=== PATIENT | male | born 2000 | race African-American/Black ===

== ENCOUNTER 2019-07-15 03:24 | Inpatient (IN) ==
[~2019-07-15 03:24] MED LIST: AMIDATE ONE; EPINEPHRINE SYRINGE IV ONE; NARCAN IV ONE; NS 2,000 ML ONE; QUELICIN ONE
[2019-07-15] MEDS ORDERED: CALCIUM CHLORIDE SYRINGE IV ONE (03:26)
[2019-07-15] MEDS ORDERED: D50W SYRINGE IV ONE (03:26)
[2019-07-15] MEDS ORDERED: SODIUM BICARBONATE 8.4% IV ONE ×2 (03:26→04:02)
[2019-07-15] MEDS ORDERED: QUELICIN IV ONE (03:26)
[2019-07-15] MEDS ORDERED: AMIDATE IV ONE (03:26)
[2019-07-15] MEDS ORDERED: EPINEPHRINE 4 MG in NS 250 ML IV SCH (03:30)
[2019-07-15] MEDS ORDERED: LR 1,000 ML IV ONE ×2 (03:31→04:34)
[2019-07-15] MEDS ORDERED: VERSED 100 MG in NS 80 ML IV SCH ×2 (04:00→09:45)
[2019-07-15] MEDS ORDERED: NARCAN IV ONE (04:02)
[2019-07-15] MEDS ORDERED: EPINEPHRINE SYRINGE IV ONE (04:02)
[2019-07-15 04:13] LABS: BASO# 0.03 X1000 (0.0-0.2); BASO% 0.4 % (0.0-0.8); EOS# 0.08 X1000 (0.0-0.7); EOS% 1.1 % (0.0-10.0); HEMATOCRIT 40.6 % (42.0-52.0); HEMOGLOBIN 12.3 g/dL (14.0-18.0); IMM GRAN# 0.07 X1000 (0.0-0.04); LYMPH# 4.78 X1000 (1.2-3.4); LYMPH% 65.9 % (20.5-51.1); MCH 28.7 PG (27-31); MCHC 30.3 g/dL (33-37); MCV 94.9 FL (81-99); MONO# 0.49 X1000 (0.11-0.59); MONO% 6.8 % (1.7-9.3); MPV 10.1 FL (7.4-10.4); NEUT% 24.8 % (42.2-75.2); PLT 300 X1000 (130-400); RBC 4.28 XMIL (4.7-6.1); RDW 12.2 % (11.5-14.5); WBC 7.25 X1000 (4.8-10.8)
[2019-07-15 04:25] LABS: UR AMPHETAMINES QUAL NONE DETECTED (NONE DETECT); UR BARBITUATES QUAL NONE DETECTED (NONE DETECT); UR BENZODIAZEPIN QUAL NONE DETECTED (NONE DETECT); UR CANNABINOIDS QUAL NONE DETECTED (NONE DETECT); UR COCAINE QUAL NONE DETECTED (NONE DETECT); UR METHADONE QUAL NONE DETECTED (NONE DETECT); UR OPIATES QUAL NONE DETECTED (NONE DETECT); UR OXYCODONE QUAL NONE DETECTED (NONE DETECT); UR PCP QUAL NONE DETECTED (NONE DETECT)
[2019-07-15 04:29] LABS: ALB/GLOB RATIO 2.4; ALBUMIN 3.9 g/dL (3.5-5.0); CALCIUM 11.2 mg/dL (8.8-10.2); CREATININE 1.2 mg/dL (0.7-1.2); TOTAL BILIRUBIN 0.4 mg/dL (0.20-1.00); TOTAL PROTEIN 5.5 g/dL (6.3-8.3)
--- NOTE | 2019-07-15 04:53 | PROVIDER DOCUMENTATION ---
HPI-General Adult - General Chief Complaint: Full Arrest Stated Complaint: FULL ARREST Time Seen by Provider: 07/15/19 03:25 Source: EMS Allergies/Adverse Reactions: Patient Allergies Allergy/AdvReac Type Severity Reaction Status Date / Time Unable to Assess Allergy Unverified 07/15/19 03:33 Home Medications: Home Medication List Medication Instructions Recorded Confirmed Last Taken Type Albuterol Sulfate [Proventil Hfa] 6.7 gm IH Q4H PRN #1 hfa.aer.ad 08/16/14 Unknown Rx Inhaler, Assist Devices [Space 1 each MC DIRECTED #1 spacer 08/16/14 Unknown Rx Chamber Plus] Ipratropium 0.03% Nasal Norris 2 spray SORAIDA TID #1 bottle 08/16/14 Unknown Rx [Atrovent 0.03% Nasal Norris] Albuterol [Albuterol Neb] 2.5 mg INH RTQ6H PRN #12 neb 08/14/15 Unknown Rx Azithromycin [Zithromax Z-Cedric] 250 mg PO DIRECTED #1 pkg 08/14/15 Unknown Rx Guaifenesin E.r. [Mucinex] 600 mg PO BID #20 tablet 08/14/15 Unknown Rx Guaifenesin/Codeine Phosphate 10 ml PO 4XDAY PRN #120 liquid 08/14/15 Unknown Rx [Cheratussin AC Syrup] Albuterol [Albuterol Neb] 2.5 mg .SEE ORDER Q4H PRN PRN #1 11/06/18 Unknown Rx neb Levofloxacin [Levaquin] 750 mg PO DAILY 10 Days #10 tab 11/06/18 Unknown Rx Guaifenesin [Guaifenesin ER] 1,200 mg PO BID #20 tab.er.12h 12/20/18 Unknown Rx Levofloxacin [Levaquin] 500 mg PO DAILY 7 Days #7 tab 12/20/18 Unknown Rx Methylprednisolone [Medrol Dosepak] 4 mg PO DIRECTED #1 pkg 12/20/18 Unknown Rx Promethazine/Dextromethorphan 120 ml PO Q6H PRN PRN #120 syrup 12/20/18 Unknown Rx [Promethazine-Dm Syrup] - History of Present Illness -Gen Adult Nature of Presenting Problems: Pt presents with cardiac arrest, pt was found down, was down for approximately 10 minutes prior to EMS arrival, they attempted intubation but failed, started CPR, put pt on [place], BVM, pt was given narcan in the field and epi, CPR was resumed upon arrival, pt had IO in left tibia, 2 IV placed in right AC and wrist, pt was given epi, bicarb, Ca, and D50, got ROSC on third pulse check, pt was give NS and started on an epi drip, attempted to intubate the patient, got good visualization of the cords but each time I attempted to intubate it seemed as though the tube was hitting something and it couldn't be pushed passed the cords, I was able to get a boogie through the cords but unable to thread the tube over the boogie, again it was bending and stopping at the site, LMA placed and pt started on vent, started fluids and versed drip, epi drip was started and eventually stopped. Location of Pain/Injury: reports: none Pain Radiation: reports: no radiation Quality of Pain: reports: none Severity: reports: mild Onset/Duration: reports: unsure Timing: reports: still present Context/Activities at Onset: reports: none Modifying Factors: improves with: nothing Associated Symptoms: reports: denies symptoms Similar Symptoms Previously?: No Recently seen or treated by another doctor?: No Review of Systems - Adult - REVIEW OF SYSTEMS - ADULT ROS:: unobtainable per condition (unresponsive, cardiac arrest) Constitutional: reports: no symptoms reported, see HPI Past History - Adult - PAST MEDICAL HISTORY-ADULT Review of Records: reports: Old Records Reviewed, Nursing Assessment Review, M edications Reviewed, Social history reviewed & non-contributory. Major Childhood Illnesses: reports: denies history Cardiovascular: reports: denies history Respiratory: reports: asthma Gastrointestinal: reports: denies history Obstetrical/Gynecological: reports: denies history Genitourinary: reports: denies history Musculoskeletal: reports: denies history Neurological: reports: denies history Endocrine/Immune: reports: denies history Other Conditions: reports: denies history - PRIOR SURGERIES/PROCEDURES Surgical/Procedure History: reports: none - IMMUNIZATION STATUS Childhood Immunizations: See Nurse Assessment Flu Vaccine: See Nurse Assessment - FAMILY HISTORY Family History: reviewed, not pertinent Physical Exam-General - PHYSICAL EXAM-ADULT Initial Vital Signs Reviewed: Yes - CONSTITUTIONAL General Appearance: severe distress, obtunded. negative: alert - EYES Eyes: PERRL/EOMI - HEAD, EARS, NOSE, MOUTH & THROAT HENMT: normal ENT inspection - NECK Neck: normal inspection - RESPIRATORY Respiratory: lungs clear, no respiratory distress, no accessory muscle use - CARDIOVASCULAR Cardiovascular: tachycardia - GASTROINTESTINAL (ABDOMEN) Abdominal Exam: non tender, soft - LYMPHATIC Lymphatic: no adenopathy - MUSCULOSKELETAL Back Exam: normal inspection Extremity: normal range of motion - SKIN Integumentary: normal color - NEUROLOGIC Neurologic: grossly normal - PSYCHIATRIC Psych/Mental Status: normal mood/affect Progress - PLAN OF CARE/RESULTS Progress/Plan/Lab Results: Vital Signs - 8 hr 07/15/19 03:10 07/15/19 03:15 07/15/19 03:16 Pulse Rate 146 H 92 H 100 H Respiratory Rate 7 L 25 H 18 Blood Pressure 90/54 63/41 79/43 O2 Sat by Pulse Oximetry 100 97 100 07/15/19 03:17 07/15/19 03:18 07/15/19 03:19 Pulse Rate 100 H 104 H 108 H Respiratory Rate 21 20 15 Blood Pressure 90/47 91/40 O2 Sat by Pulse Oximetry 100 100 07/15/19 03:20 07/15/19 03:21 07/15/19 03:23 Pulse Rate 113 H 128 H 136 H Respiratory Rate 17 19 23 Blood Pressure 100/40 127/69 143/84 O2 Sat by Pulse Oximetry 100 100 100 07/15/19 03:25 07/15/19 03:27 07/15/19 03:28 Pulse Rate 132 H 129 H 136 H Respiratory Rate 1 L 17 19 Blood Pressure 159/97 168/108 168/108 O2 Sat by Pulse Oximetry 100 100 100 07/15/19 03:29 07/15/19 03:31 07/15/19 03:34 Pulse Rate 144 H 147 H 145 H Respiratory Rate 16 17 21 Blood Pressure 193/135 190/133 202/148 O2 Sat by Pulse Oximetry 100 100 100 07/15/19 03:36 07/15/19 03:38 07/15/19 03:40 Pulse Rate 149 H 153 H 150 H Respiratory Rate 11 L 13 15 Blood Pressure 208/150 207/150 203/141 O2 Sat by Pulse Oximetry 100 100 100 07/15/19 03:42 07/15/19 03:44 07/15/19 03:45 Pulse Rate 153 H 152 H 149 H Respiratory Rate 16 13 11 L Blood Pressure 205/137 199/131 O2 Sat by Pulse Oximetry 100 100 100 07/15/19 03:46 07/15/19 03:48 07/15/19 03:50 Pulse Rate 148 H 144 H 138 H Respiratory Rate 8 L 14 19 Blood Pressure 195/130 200/112 186/131 O2 Sat by Pulse Oximetry 100 100 100 07/15/19 03:52 07/15/19 03:54 07/15/19 03:56 Pulse Rate 128 H 122 H 113 H Respiratory Rate 17 12 16 Blood Pressure 182/110 179/112 154/118 O2 Sat by Pulse Oximetry 100 100 100 07/15/19 03:58 07/15/19 04:00 07/15/19 04:01 Pulse Rate 107 H 108 H 107 H Respiratory Rate 15 15 16 Blood Pressure 166/108 154/108 O2 Sat by Pulse Oximetry 100 100 100 07/15/19 04:02 07/15/19 04:04 07/15/19 04:06 Pulse Rate 105 H 105 H 103 H Respiratory Rate 16 18 17 Blood Pressure 160/110 156/114 161/110 O2 Sat by Pulse Oximetry 100 100 100 07/15/19 04:08 07/15/19 04:10 07/15/19 04:12 Pulse Rate 102 H 104 H 102 H Respiratory Rate 17 20 16 Blood Pressure 146/117 175/93 156/114 O2 Sat by Pulse Oximetry 100 100 100 07/15/19 04:14 07/15/19 04:15 07/15/19 04:16 Pulse Rate 101 H 102 H 100 H Respiratory Rate 13 15 17 Blood Pressure 159/119 160/111 O2 Sat by Pulse Oximetry 100 100 100 07/15/19 04:18 07/15/19 04:20 07/15/19 04:22 Pulse Rate 97 H 95 H 99 H Respiratory Rate 15 16 17 Blood Pressure 152/108 160/111 152/111 O2 Sat by Pulse Oximetry 100 100 100 07/15/19 04:24 07/15/19 04:26 07/15/19 04:28 Pulse Rate 94 H 99 H 97 H Respiratory Rate 16 18 20 Blood Pressure 176/90 146/116 162/100 O2 Sat by Pulse Oximetry 100 100 100 07/15/19 04:30 07/15/19 04:31 07/15/19 04:32 Pulse Rate 110 H 104 H 97 H Respiratory Rate 17 18 19 Blood Pressure 168/113 160/124 O2 Sat by Pulse Oximetry 100 100 100 07/15/19 04:34 07/15/19 04:36 Pulse Rate 100 H 98 H Respiratory Rate 21 22 Blood Pressure 155/116 164/120 O2 Sat by Pulse Oximetry 100 100 Laboratory Results - last 24 hr 07/15/19 07/15/19 07/15/19 03:01 03:12 03:12 WBC 7.25 RBC 4.28 L Hgb 12.3 L Hct 40.6 L MCV 94.9 MCH 28.7 MCHC 30.3 L RDW Std Deviation 12.2 Plt Count 300 MPV 10.1 Immature Gran % (Auto) 1.0 H Neut % (Auto) 24.8 L Lymph % (Auto) 65.9 H [place] % (Auto) 6.8 Eos % (Auto) 1.1 Baso % (Auto) 0.4 Immature Gran # (Auto) 0.07 H Neut # (Auto) 1.80 Lymph # (Auto) 4.78 H [place] # (Auto) 0.49 Eos # (Auto) 0.08 Baso # (Auto) 0.03 Sodium Potassium Chloride Carbon Dioxide Anion Gap BUN Creatinine Estimated GFR/1.73 m2 BUN/Creatinine Ratio Glucose POC Glucose 204 H Calculated Osmolality Calcium Total Bilirubin AST ALT Alkaline Phosphatase Troponin T Total Protein Albumin Globulin Albumin/Globulin Ratio Urine Opiates Screen Ur Oxycodone Screen Ur Methadone, Qual Ur Barbiturates Screen Ur Phencyclidine Scrn Ur Amphetamines Screen U Benzodiazepines Scrn Urine Cocaine Screen U Cannabinoids Screen Plasma/Serum Ethyl Alc 07/15/19 07/15/19 07/15/19 03:12 03:12 03:12 WBC RBC Hgb Hct MCV MCH MCHC RDW Std Deviation Plt Count MPV Immature Gran % (Auto) Neut % (Auto) Lymph % (Auto) [place] % (Auto) Eos % (Auto) Baso % (Auto) Immature Gran # (Auto) Neut # (Auto) Lymph # (Auto) [place] # (Auto) Eos # (Auto) Baso # (Auto) Sodium 145 Potassium 5.0 Chloride 98 Carbon Dioxide 26 Anion Gap 21 BUN 18 Creatinine 1.2 Estimated GFR/1.73 m2 54 BUN/Creatinine Ratio 15 Glucose 309 H POC Glucose Calculated Osmolality 302 Calcium 11.2 H Total Bilirubin 0.40 AST 46 H ALT 39 Alkaline Phosphatase 68 Troponin T < 0.010 Total Protein 5.5 L Albumin 3.9 Globulin 1.6 Albumin/Globulin Ratio 2.4 Urine Opiates Screen NONE DETECTED Ur Oxycodone Screen NONE DETECTED Ur Methadone, Qual NONE DETECTED Ur Barbiturates Screen NONE DETECTED Ur Phencyclidine Scrn NONE DETECTED Ur Amphetamines Screen NONE DETECTED U Benzodiazepines Scrn NONE DETECTED Urine Cocaine Screen NONE DETECTED U Cannabinoids Screen NONE DETECTED Plasma/Serum Ethyl Alc Orders Category Date Time Status CHEST-PORTABLE [RAD] Stat Exams 07/15/19 03:27 Taken ALCOHOL BLOOD Stat Lab 07/15/19 03:12 Completed CBC WITH ELECTRONIC DIFF [HEME] Stat Lab 07/15/19 03:12 Completed COMPREHENSIVE METABOLIC PANEL [CHEM] Stat Lab 07/15/19 03:12 Completed TROPONIN T Stat Lab 07/15/19 03:12 Completed URINE DRUG SCREEN Stat Lab 07/15/19 03:12 Completed 0.9% Sodium Chloride Inj [Ns] 2,000 ml Med 07/15/19 03:24 Discontinued .ROUTE As directed 0.9% Sodium Chloride Inj [Ns] 250 ml Med 07/15/19 03:30 Active Epinephrine 4 mg IV As Directed mls/hr 0.9% Sodium Chloride Inj [Ns] 80 ml Med 07/15/19 04:00 Active Midazolam [Versed] 100 mg IV As Directed mls/hr Calcium Chloride Syringe Med 07/15/19 03:26 Discontinued 1 gm IV NOW ONE Dextrose 50% Syringe [D50w Syringe] Med 07/15/19 03:26 Discontinued 50 ml IV NOW ONE Epinephrine Syringe Med 07/15/19 04:02 Discontinued 1 mg IV .STK-MED ONE Epinephrine Syringe Med 07/15/19 03:01 Discontinued 1 mg IV NOW ONE Etomidate [Amidate] Med 07/15/19 03:26 Discontinued 10 mg IV NOW ONE Etomidate [Amidate] Med 07/15/19 03:10 Discontinued 40 mg .ROUTE .STK-MED ONE Lactated Ringers Inj [Lr] 1,000 ml Med 07/15/19 03:31 Discontinued IV 999 mls/hr Lactated Ringers Inj [Lr] 1,000 ml Med 07/15/19 04:34 Active IV 999 mls/hr Naloxone [Narcan] Med 07/15/19 04:02 Discontinued 2 mg IV .STK-MED ONE Naloxone [Narcan] Med 07/15/19 02:58 Discontinued 2 mg IV NOW ONE Sodium Bicarbonate 8.4% Med 07/15/19 04:02 Discontinued 50 meq IV .STK-MED ONE Sodium Bicarbonate 8.4% Med 07/15/19 03:26 Discontinued 50 meq IV NOW ONE Succinylcholine [Quelicin] Med 07/15/19 03:26 Discontinued 150 mg IV NOW ONE Succinylcholine [Quelicin] Med 07/15/19 03:10 Discontinued 200 mg .ROUTE .STK-MED ONE EKG [EKG] Stat Ther 07/15/19 03:27 Ordered Spoke with anesthesia about the ETT not passing, they suggested it could be a f ood bolus that was aspirated or possibly a polyp, they recommeded we leave him on the LMA, to attempt to pass a tube now could push the objection further down, pt is ventilating well, anesthesia is available in the am to do a bronch and eval if there is an obstruction past the cords, considered hypothermia but was hesitant due to no diffinitive airway, spoke with Dr. Ewing about it and will defer to the inpatient ICU team to decide if they want hypothermia, pt admitted to the ICU. Result Diagrams: 07/15/19 03:12 07/15/19 03:12 Procedures - INTUBATION Mallampati Class: 1 Intubation Method: orotracheal Equipment: LMA Tube Size (cm): size 3 LMA Pretreated with 100% Oxygen?: Yes Breath Sounds after Intubation: equal ETT Primary Tube Confirmation: Capnometry CO2 Change, Chest Rise and Fall Intubation Complications: oral-unsuccessful attempt (3 attempt with both glidescope and DL, was able to get boogie through the cords but unable to pass ETT on any attempt, each time it bent and wouldn't pass) Departure - Departure Date of Disposition Decision: 07/15/19 Time of Disposition Decision: 05:01 DIAGNOSIS: Cardiac arrest Disposition: ADMITTED INPATIENT 09 Certified Medical Emergency: Emergent Condition: Critical Referrals and Follow-Ups: Lucsa De Jesus MD [Primary Care Provider] - - Critical Care Note This patient required my direct & personal management of CC.: Yes Total Time (mins): 45 Critical Care Statement: This patient required my direct personal management to treat or rule out processes, the absence of which, could potentiallly result in sudden, clinically significant life or limb threatening deterioration. Attestation - Physician/ ANNA Attestation Patient care was provided by Advanced Practice Provider:: No The physician spent face to face time with patient:: Yes Advanced Practice Provider documentation review:: Supervising physician onsite and consulted in the evaluation and care of this patient. The physician did have a face to face encounter with the patient.
[2019-07-15] MEDS ORDERED: FENTANYL IV ONE ×2 (04:58→07:15)
[2019-07-15] MEDS ORDERED: DUONEB (A & A) INH ONE (05:33)
[2019-07-15] MEDS ORDERED: SOLU-MEDROL IV ONE (05:33)
[2019-07-15 05:44] LABS: ALLEN TEST YES; BLOOD TYPE ARTERIAL; METHB 0.8 % (0.0-1.5); O2(CT) 21.5 mL/dL (15.0-23.0); PO2(98.6) 419 mmHg (60-100); SAMPLE BLOOD; SAO2 100.3 % (95.0-100.0); SRATE 15 BPM; THB 14.8 g/dL (11.5-17.4); pH(98.6) 7.21 (7.35-7.45)
[2019-07-15 05:46] LABS: MODALITY VENTILATOR; PCO2(98.6) 60 mmHg (35-45)
[2019-07-15] MEDS ORDERED: LOVENOX SUBQ SCH ×2 (07:04→07:15)
[2019-07-15] MEDS ORDERED: TYLENOL PO PRN (07:04)
[2019-07-15] MEDS ORDERED: ZOFRAN IV PRN (07:04)
[2019-07-15] MEDS ORDERED: TYLENOL PR PRN (07:11)
[2019-07-15] MEDS ORDERED: NS 500 ML IV PRN (07:11)
--- NOTE | 2019-07-15 07:14 | Diag Imaging Result Doc PS360 ---
EXAM: CHEST-PORTABLE 07/15/2019 HISTORY: POST INTUBATION TECHNIQUE: AP portable at 0331 COMMENT: The stomach is markedly distended with gas. Compared to 12/20/2018 the alveolar opacity in the left lower lobe has resolved. No evidence of focal pulmonary opacity is otherwise present. IMPRESSION: Gastric distention. Electronically signed by Rene Dominguez 07/15/2019 7:11 AM
[2019-07-15] MEDS ORDERED: POTASSIUM CHLORIDE 40 MEQ in NS 250 ML IV PRN (07:15)
[2019-07-15] MEDS ORDERED: MAGNESIUM SULFATE 2 GM in STERILE WATER INJ. 50 ML IV PRN (07:15)
[2019-07-15] MEDS ORDERED: POTASSIUM CHLORIDE 60 MEQ in NS 500 ML IV PRN (07:15)
[2019-07-15] MEDS ORDERED: SODIUM PHOSPHATE 10 MMOL in NS 250 ML IV PRN (07:15)
--- NOTE | 2019-07-15 07:25 | HISTORY AND PHYSICAL ---
PRIMARY CARE PHYSICIAN: None. REASON FOR ADMISSION: Cardiorespiratory arrest. HISTORY OF PRESENT ILLNESS: Mr. Cordero is a 19-year-old male with past medical history of asthma. The mother informs me that he has been seeing a specialist. He was seeing a specialist about 4 to 5 years ago in [place] for his lung problems and as a child in [place] for this same unusual lung problem other than asthma. The patient was brought in today by EMS when he fell at his uncle's house and became unresponsive. His uncle witnessed this and put his hand on his chest. He tried to attempt to do CPR, but he didn't know what he was doing and called for help. Within 20 minutes, the EMS had arrived. He said prior to EMS walking through the door he noted that his nephew's heart beat had disappeared. When the EMS came in, they started compressions and got ROSC. On their way to transporting him to the hospital, they a lost pulse again and continued CPR. On arrival to our facility, he underwent CPR and was given 3 doses of IV epinephrine. Since then, ROSC has returned and has been sustained. He is currently not on any pressors at this point in time. 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 He started working there a few days ago. His mother did not notice any acute shortness of breath or any complaints of chest pain. The only complaint the patient gave them was that he felt tired and was very thirsty. No antecedent history of polyuria. No history of blood loss, fever or chills. REVIEW OF SYSTEMS: Limited due to the fact the patient is currently intubated and sedated. ALLERGIES: No known allergies. MEDICATIONS: Albuterol nebulizer machine. PAST SURGICAL HISTORY: Nil. FAMILY HISTORY: Negative for heart disease and diabetes. SOCIAL HISTORY: The patient does not smoke, drink, or use illicit drugs. There was according to the ER records someone did state that the patient endorsed smoking spice before incident, but the uncle vehemently denies this. LABORATORY: White count 7000, hemoglobin and hematocrit 12 and 40, platelet count of 300,000. He has 67% lymphocytes. BUN is 18 and creatinine 1.2, up from 0.8. Glucose is 309. Calcium is 11.2. Troponin is negative. Urine drug screen is negative. Alcohol level is negative. Urinalysis is pending. Chest film reviewed by me shows the patient showed increased vascular markings with possible right lower lobe infiltrative process, and a very distended stomach noted. Blood gas was 7.21, pCO2 was 60, and PO2 was 400. PHYSICAL EXAMINATION: GENERAL: On examination, a young man with an LMA in place. He is profoundly sedated. He is breathing normally, but occasionally intermittently he will take a sudden sharp breath. VITAL SIGNS: His blood pressure is 164/120, heart rate is 22, temperature is afebrile to touch, heart rate is 98 and 100% on FiO2. HEENT: Head is normocephalic and atraumatic. Eyes: Pupils are miotic and barely reactive to light. No nystagmus noted. He is anicteric, not pale. No visual central cyanosis noted. NECK: No JVD. No thyromegaly visualized. CHEST: Decreased entry in the bases, but has bibasilar crepitations. No wheezes heard. CARDIOVASCULAR: First and 2nd sounds heard. No gallops, murmurs, or rubs. Rhythm is regular. ABDOMEN: Slightly distended. Soft. No mass is appreciated. No organomegaly appreciated. Bowel sounds are hypoactive. RECTAL: Deferred. EXTREMITIES: Patient has good distal pulses. Volume is regular and symmetrical. No edema, clubbing, or peripheral cyanosis. NEUROLOGIC: Difficult to assess. Once sternal rub was applied, he grimaced but no overt movement of extremities. I was told they had to give him a dose of vecuronium after initial RSI drugs. SKIN: Intact. No breakdown, lesions, or erythema. MUSCULOSKELETAL: Exam is grossly normal. ASSESSMENT: 1. Cardiorespiratory arrest? Sudden respiratory failure from airway disease i.e. asthma. 2. Acute kidney injury. 3. Hyperglycemia which could be stress induced. 4. Hypercalcemia which could be secondary to IV calcium administration. 5. Lymphocytosis? significance. 6. The patient will be started on hypothermia protocol. In addition to that, we will start patient on moderate doses of steroids and short and long acting bronchodilators since he has a pre-existing history of asthma which may or may not have contributed to his presentation. The patient does have the appropriate reactive hyperglycemia from stressful event. However, I will still need to rule out possible DKA here. Possible uncontrolled diabetes. 7. Aggressively resuscitate patient fluid martins as he unlikely to be in early DKA, and I noted that his urine bag had barely put out enough urine . He has only received about a L of fluid at this point in time, and this needs to be addressed. I do not see any infectious source at this point in time. No blood cultures have been drawn. Repeat blood gas, ABG, and all labs in the next 4 hours and make appropriate adjustments. TIME SPENT: Total critical care time was greater than 35 minutes. cc: Indira Ewing MD MTDD
[2019-07-15 07:26] LABS: URINE SOURCE CATH
[2019-07-15 07:40] LABS: COLOR YELLOW; GLUCOSE URINE NEGATIVE (NEGATIVE); INR 1.16; TURBIDITY URINE HAZY (CLEAR)
[2019-07-15 07:41] LABS: BILIRUBIN URINE NEGATIVE (NEGATIVE); BLOOD URINE LARGE (NEGATIVE); KETONE URINE NEGATIVE (NEGATIVE); LEUKOCYTES URINE NEGATIVE (NEGATIVE); NITRITE URINE NEGATIVE (NEGATIVE); PH URINE 6.5; PROTEIN URINE 70 mg/dL (NEGATIVE); SP GRAVITY URINE 1.032; UROBILINOGEN URINE NORMAL (NORMAL)
[2019-07-15 07:42] LABS: UR EPITHELIAL CELLS <10 /HPF (<10); URINE BACTERIA NEGATIVE /HPF; URINE RBC TNTC /HPF (<10)
[2019-07-15] MEDS: SODIUM CHLORIDE 0.9% INJ SCH ×2 (07:45→18:41)
[2019-07-15] MEDS: PEPCID IV SCH ×2 (07:45→18:41)
[2019-07-15 07:46] LABS: MAGNESIUM 2.4 mg/dL (1.5-2.7); PHOSPHORUS 9.3 mg/dL (2.7-4.5)
[2019-07-15 07:48] LABS: HEMOGLOBIN A1C 5.5 % (4.8-6.0)
[2019-07-15] MEDS: NS 1,000 ML IV SCH ×3 (07:59→20:18)
[2019-07-15] MEDS: ATIVAN IV SCH ×5 (07:59→23:34)
[2019-07-15] MEDS ORDERED: NITROGLYCERIN 50 MG/D5W 50 MG/250 ML IV.SOLN IV SCH ×2 (08:00→19:45)
[2019-07-15] MEDS: FENTANYL 1,000 MICROGM in NS 80 ML IV SCH (08:12)
[2019-07-15] MEDS ORDERED: NS 250 ML ONE (08:28)
[2019-07-15] MEDS ORDERED: KEFZOL 1 GM/D5W 1 GM/50 ML IVPB IV ONE (09:41)
[2019-07-15] MEDS ORDERED: SENSORCAINE 0.25%/EPI 1:200,000 ONE (09:58)
[2019-07-15] MEDS ORDERED: KEFZOL 1 GM/D5W 1 GM/50 ML IVPB ONE (10:25)
[2019-07-15 10:31] LABS: BASO# 0.01 X1000 (0.0-0.2); BASO% 0.1 % (0.0-0.8); HEMATOCRIT 47.6 % (42.0-52.0); HEMOGLOBIN 15.3 g/dL (14.0-18.0); IMM GRAN# 0.04 X1000 (0.0-0.04); IMM GRAN% 0.2 % (0.0-0.5); LYMPH# 1.12 X1000 (1.2-3.4); MCH 28.8 PG (27-31); MCHC 32.1 g/dL (33-37); MCV 89.6 FL (81-99); MONO# 0.95 X1000 (0.11-0.59); MONO% 5.9 % (1.7-9.3); MPV 9.6 FL (7.4-10.4); NEUT# 13.96 X1000 (1.4-6.5); NEUT% 86.8 % (42.2-75.2); PLT 329 X1000 (130-400); RBC 5.31 XMIL (4.7-6.1); RDW 12.4 % (11.5-14.5); WBC 16.08 X1000 (4.8-10.8)
[2019-07-15 10:34] LABS: AGAP 13; ALB/GLOB RATIO 2.3; ALBUMIN 4.8 g/dL (3.5-5.0); ALKALINE PHOSPHATASE 77 U/L (32-122); BUN 20 mg/dL (8-22); CHLORIDE 104 mmol/L (98-107); COSMO 300; CREATININE 0.9 mg/dL (0.7-1.2); ESTIMATED GFR > 60; GLUCOSE 185 mg/dL (70-104); GOT 69 U/L (10-34); GPT 53 U/L (10-44); POTASSIUM 3.6 mmol/L (3.5-5.1); SODIUM 147 mmol/L (136-145); TCO2 30 mmol/L (25-35); TOTAL BILIRUBIN 0.38 mg/dL (0.20-1.00); TOTAL PROTEIN 6.9 g/dL (6.3-8.3)
--- NOTE | 2019-07-15 11:04 | CARDIOLOGY CONSULTATION ---
DATE: 07/15/2019 REASON FOR ADMISSION: Cardiorespiratory arrest. HISTORY OF PRESENT ILLNESS: Mr. Cordero is a 19-year-old black male with a history of asthma and some sort of lung issue stemming from premature . He is seeing some sort of lung specialist previously in [place]. 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 His mother said he would come home with black dust on his face. Yesterday he did the same. That evening he went over to his uncle's house. His uncle reportedly said he was acting a little bit funny, but did not think anything of it. Next thing you know, they found him unresponsive in the bathroom. They attempted CPR. EMS came. He was brought to the ER and he was in asystole. Again, ACLS was ensued; eventually got a return of spontaneous circulation. They have been unable to intubate the patient due to his airway, and are pending taking him to the operating room for tracheostomy. PAST MEDICAL HISTORY: Asthma with some sort of lung issue which he had seen a specialist before in the past. FAMILY HISTORY: Negative for early heart disease. SOCIAL HISTORY: He does not smoke, drink or use illicit drugs. REVIEW OF SYSTEMS: A 10 system review of systems is negative, except for those things mentioned in HPI. PHYSICAL EXAMINATION: Vital Signs: He is afebrile. His heart rate has been in the low 100s for much of the evening. More recently, he was in the 80s. Blood pressure 157/99. General: No acute distress. He is not responsive to physical or verbal stimuli. HEENT: Oropharynx is moist. Normal dentition. Eye examination shows pink conjunctivae, white sclerae. Neck: Examination shows no obvious thyromegaly or thyroid tenderness. Cardiovascular: He sounds to be in a regular rate and rhythm. He has no obvious murmurs. He has no S3. He has no lower extremity edema. Chest: Clear bilaterally. He has no increased work of breathing. Abdomen: Soft, nontender. Neurological: He has Doll's eye reflex. Again, he is not responsive. PERTINENT DATA: His EKG on presentation shows sinus rhythm 100 beats per minute. No obvious ischemic changes. He had a chest x-ray performed yesterday demonstrating gastric distention. No focal pulmonary opacity was identified. His lab data shows a white count of 7.2, hematocrit 40, platelet count is 300. His ABG was 7.2 pH, pCO2 of 60, PO2 419, lactate 7.7. Sodium 145, potassium is 5, BUN 18, creatinine is 1.2. Cardiac enzymes negative. ASSESSMENT: Mr. Cordero is a 19-year-old male who presented with respiratory/cardiac arrest. PLAN: At this point from a Cardiology standpoint, we will obtain an echocardiogram. Further recommendations to follow. He is going to the operating room for a definitive airway as he has been unable to be intubated, although he seems to be oxygenating just fine. cc: Darin Dietz MD
[2019-07-15 11:17] LABS: BANDS 3 % (0-1); LYMPHS 6 % (21-51); MONO 12 % (1-9); SEGS 79 % (42-75)
--- NOTE | 2019-07-15 11:19 | EKG Report ---
Test Performed on : 07/15/2019 11:08:21 AM Test Reason : cardiac arrest/prolong QT Blood Pressure : / mmHG Vent. Rate : 087 BPM Atrial Rate : 087 BPM P-R Int : 140 ms QRS Dur : 102 ms QT Int : 382 ms P-R-T Axes : 071 082 067 degrees QTc Int : 459 ms Normal sinus rhythm. Normal ECG No previous ECGs available Confirmed by Pricilla GRECO, Yusuf Walker ([id number]) on 07/16/2019 6:05:00 AM
[2019-07-15] MEDS: LOVENOX SUBQ SCH ×2 (11:45→23:34)
[2019-07-15] MEDS: NIMBEX 80 MG in NS 160 ML IV SCH ×3 (11:46→22:17)
[2019-07-15] MEDS: LACRI-LUBE OPH OINT BOTH EYES SCH ×2 (11:46→17:39)
[2019-07-15 12:17] LABS: ALLEN TEST YES; BE -1.7 mmoll (-3.0-3.0); BLOOD TYPE ARTERIAL; HCO3-(ACT) 23.6 mmoll (20.0-26.0); O2(CT) 21.5 mL/dL (15.0-23.0); PO2(98.6) 203 mmHg (60-100); SAMPLE BLOOD; SAO2 100.4 % (95.0-100.0); SRATE 16 BPM; THB 15.3 g/dL (11.5-17.4); TVOL 400 mL
[2019-07-15 12:19] LABS: MODALITY VENTILATOR; PCO2(98.6) 73 mmHg (35-45)
--- NOTE | 2019-07-15 12:27 | PROGRESS NOTE ---
DATE: 07/15/2019 SUBJECTIVE: This morning I saw Mr. Cordero in the ICU. I was called by the nurses to come in emergently. Anesthesia had tried multiple times to secure an airway. However, they were unsuccessful. I also understand that the patient was tried on multiple occasions by the emergency physician, and they were unresponsive. 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 He is being treated for asthma, and he is on intermittent inhalers. He seems to have been fairly okay, went to work yesterday, and came home. According to the mother, he was in his normal state of health. He went to his uncle's house and they were there playing some games. According to the uncle, he looked tired and he looks sweaty, and he thought that Mr. Cordero did not look great. Anyway, he did not make anything out of that. They left Mr. Cordero on the couch and there were 2 other family members around. He denies them using any form of drugs at his house. In any case around 12:00, Mr. Cordero went to use the restroom. According to the uncle, Mr. Cordero looked very unstable. He looked sweaty, and when he went to use the restroom he seemed to have lost his balance and then he fell. When he went to check on him, he had lost pulse. Immediately, he started CPR, but he did know what he was doing so he called for help, and the emergency unit came to assist. The patient was brought to the emergency room. Per the H P, CPR was done upon arrival. Three doses of epinephrine was given and ROSC was obtained. Since then, Mr. Cordero has been in the ICU. He is currently with LMA because they could not get a secured airway. OBJECTIVE: His current blood pressure is 157/97, pulse of 109, respirations at 34, and temperature is 96.3 degrees.General: Mr. Cordero is a 19-year-old gentleman. He is in bed. He is tachypneic. Mucosa is pink and moist. Anicteric. Acyanotic. Neck: Supple. There is no JVD. No carotid bruit. Chest: Air entry is bilaterally reduced, but there are not any crackles. There are some transmitted sounds from the ventilator. Cardiovascular: Tachycardic but no murmurs. No rubs. Abdomen: Soft. Bowel sounds present. Extremities: No pedal edema. The patient has a Crooks catheter in place. NURSE EXTERN: Patient is unresponsive. Pupils are very pinpoint and minimally reactive. There were so many things going on so I could not do a more comprehensive neurological exam at this time. LABORATORY DATA: WBC 7.25, hemoglobin is 12.3, and platelet count of 300,000. Chemistry is also reviewed. The patient has a lactate level of 7.7. Glucose is elevated. Urine shows blood. I think that is because of the Crooks catheter trauma. An EKG which was done on admission seems to suggest sinus tachycardia with occasional PVC. There is a prolonged QT and some T-wave inversion in the inferolateral leads. The patient also seems to have an S1, Q3, and T3 pattern which in the right contest could mean pulmonary emboli. A chest x-ray did show gastric distention, but for the most part unremarkable. ASSESSMENT: 1. Status post cardiac arrest. ROSC was obtained it seems like intermittently, but became stabilized after 2 hours. The patient has a difficulty airway so he is currently on LMA. We are not 100% sure what could have precipitated the cardiac/respiratory arrest. So far, troponin's have been trended. The initial one was negative. We do not have a pro B, but we will do one. We will also repeat the EKG and get Cardiology to evaluate him. 2. Acute respiratory failure after cardiac arrest. The patient has LMA. I understand multiple attempts has been made by the ER physician. This morning multiple attempts were also made by Anesthesia, and they were unremarkable. 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 We have consulted Surgery to get a tracheostomy. I have discussed this with the family who was the mother, the grandma, and the uncle; all of them are in agreement. I have also spoken with the surgeon operations supervisor chemical cleaning today. 3. Hyperglycemia. I think this is a stress response. 4. Unresponsiveness after cardiac arrest. The patient has been on sedatives as well so we will not be able to get a more comprehensive idea on his mental status. We will wait. When all is settled, we will do a more comprehensive neurological evaluation. We will also get Neurology to see him. There is an order for a CT scan of the brain whenever possible. 5. History of asthma noted. PLAN: So in general, I think Mr. Cordero continues to be remarkably sick. His EKG did show some mild T-wave abnormalities in S1 Q3 and T3 pattern, and also prolonged QT. There is also the concern that he could have some synthetic drugs which we are not 100% sure about that. For now, we are going to get a secure airway with tracheostomy, and then after that, we can do some scans and then go forward. The patient is pending to be evaluated by Pulmonary Medicine, Cardiology and Neurology. I have explained my findings and the plan with the family members who were at the bedside at the time of the encounter. TIME SPENT: Critical time spent is 1 hour. cc: Raghavendra Fairchild MD MTDD
--- NOTE | 2019-07-15 13:09 | Diag Imaging Result Doc PS360 ---
EXAM: CHEST-PORTABLE 07/15/2019 HISTORY: vent. TECHNIQUE: AP portable at 1300 COMMENT: There is bilateral perihilar pulmonary edema. There is an NG tube with its tip in the stomach and a PICC line on the right with its tip just above the right atrium. Compared to 07/15/2019 at 0331 the pulmonary edema was not evident previously. IMPRESSION: Florid perihilar pulmonary edema. Electronically signed by Rene Dominguez 07/15/2019 1:07 PM
[2019-07-15] MEDS ORDERED: HUMULIN R 100 UNIT in NS 100 ML IV SCH (13:45)
[2019-07-15] MEDS: MAXIPIME 1 GM in NS 50 ML IV SCH (14:29)
[2019-07-15] MEDS: ZYVOX 600 MG/D5W 600 MG/300 ML IVPB IV SCH (14:29)
[2019-07-15 16:16] LABS: AGAP 0; BUN 15 mg/dL (8-22); CALCIUM 7.1 mg/dL (8.8-10.2); CHLORIDE 117 mmol/L (98-107); COSMO 275; CREATININE 0.8 mg/dL (0.7-1.2); ESTIMATED GFR > 60; GLUCOSE 137 mg/dL (70-104); POTASSIUM 4.7 mmol/L (3.5-5.1); SODIUM 136 mmol/L (136-145); TCO2 19 mmol/L (25-35)
[2019-07-15 18:12] LABS: HEMATOCRIT 38.8 % (42.0-52.0); HEMOGLOBIN 12.6 g/dL (14.0-18.0); IMM GRAN# 0.02 X1000 (0.0-0.04); IMM GRAN% 0.2 % (0.0-0.5); LYMPH% 3.2 % (20.5-51.1); MCH 28.9 PG (27-31); MCHC 32.5 g/dL (33-37); MONO# 0.67 X1000 (0.11-0.59); MONO% 7.2 % (1.7-9.3); MPV 8.8 FL (7.4-10.4); NEUT# 8.38 X1000 (1.4-6.5); NEUT% 89.4 % (42.2-75.2); PLT 216 X1000 (130-400); RBC 4.36 XMIL (4.7-6.1); RDW 12.1 % (11.5-14.5); WBC 9.37 X1000 (4.8-10.8)
[2019-07-15 18:24] LABS: INR 1.28; PROTIME 16.2 Seconds (11.0-16.0)
[2019-07-15 18:34] LABS: ALLEN TEST YES; BE -1.1 mmoll (-3.0-3.0); BLOOD TYPE ARTERIAL; HCO3-(ACT) 24.1 mmoll (20.0-26.0); METHB 1.5 % (0.0-1.5); O2(CT) 22.9 mL/dL (15.0-23.0); O2HB 97.4 % (95.0-99.0); PO2(98.6) 358 mmHg (60-100); SAMPLE BLOOD; SAO2 99.7 % (95.0-100.0); SRATE 16 BPM; THB 16.1 g/dL (11.5-17.4); TVOL 500 mL; pH(98.6) 7.31 (7.35-7.45)
[2019-07-15 18:36] LABS: PCO2(98.6) 52 mmHg (35-45)
[2019-07-15 18:37] LABS: MODALITY VENTILATOR
[2019-07-15 19:04] LABS: LYMPHS 6 % (21-51); MONO 6 % (1-9); SEGS 88 % (42-75)
[2019-07-15 19:05] LABS: MAGNESIUM 1.2 mg/dL (1.5-2.7); PHOSPHORUS 1.2 mg/dL (2.7-4.5)
--- NOTE | 2019-07-15 19:55 | OPERATIVE NOTE ---
PROCEDURE DATE: 07/15/2019 PREOPERATIVE DIAGNOSES: 1. Respiratory failure, status post cardiac arrest. 2. Tracheal stenosis. POSTOPERATIVE DIAGNOSES: 1. Respiratory failure, status post cardiac arrest. 2. Tracheal stenosis. PROCEDURE PERFORMED: Tracheostomy. SURGEON: Laith Gomez MD ANESTHESIA: General. ESTIMATED BLOOD LOSS: 3 mL. COMPLICATIONS: None apparent. FINDINGS: The trachea below the cricoid cartilage appeared to be of normal caliber. There was evidence of gastric secretions in the upper airway secondary to aspiration. TECHNIQUE: He was brought to the operating room and placed supine on the table. His general LMA anesthesia was continued. His neck was prepped and draped in the usual sterile fashion, and 0.25% Marcaine with epinephrine was used to anesthetize the skin. Incision was made longitudinally in the neck about 2 fingerbreadths above the sternal notch. This was carried down through the subcutaneous tissues with cautery, in between the strap muscles with cautery, and then we divided the thyroid with cautery. This exposed the trachea. I could palpate the cricoid cartilage, as well as the first and second tracheal rings. I placed a 2-0 Surgipro retraction suture around the second tracheal ring on either side of the midline and held these with hemostats. I then incised the second tracheal ring with an 11 blade and used the steam and power supervisor to open up the airway. Suction was used to suction out the gastric secretions from the airway, and then a number 6 Shiley tube was placed successfully into the airway. The balloon was inflated. The dry pan operator passed the airway tubing over and connected it, and there was positive end-tidal CO2 and successful mechanical ventilation. I anchored the tracheostomy to the skin with nylon suture. He tolerated this well, was transferred back to the ICU in critical condition. cc: Laith Gomez MD
[2019-07-15] MEDS: SODIUM PHOSPHATE 20 MMOL in NS 250 ML IV PRN (20:39)
--- NOTE | 2019-07-15 21:08 | GENERAL SURGERY CONSULTATION ---
DATE: 07/15/2019 REASON FOR CONSULTATION: Definitive airway/tracheostomy. HISTORY OF PRESENT ILLNESS: This is a 19-year-old male who was born prematurely at 7 months and was under the care of a gas operations analyst I believe for several years early in life. According to the family, he eventually was able to stop going to regular checkups and seem to live a fairly normal life as a child. As a young adult, he has had a couple of episodes of pneumonia in the last year or 2, but otherwise has been in reasonably good health. However, this morning he became unresponsive. He was found down approximately for 10 to 15 minutes prior to EMS arrival at the scene. He was pulseless and the EMS found him to be in asystole. CPR was initiated. Intubation was attempted, but unsuccessful both on the scene and here at the hospital by the anesthesiologist and the ER physician. He regained his pulse after several rounds of CPR and epinephrine. I am consulted for what is an apparent narrow airway and the need for definitive airway such as tracheostomy. PAST MEDICAL HISTORY: Premature and pulmonary consequences of this, which are not clearly defined at this time. HOME MEDICATIONS: Albuterol as needed. ALLERGIES: No known drug allergies. PAST SURGICAL HISTORY: None. REVIEW OF SYSTEMS: Unobtainable as the patient is sedated and has an LMA airway. FAMILY HISTORY: Reviewed and unremarkable. SOCIAL HISTORY: Negative for tobacco, alcohol or illicit drug use. 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 PHYSICAL EXAMINATION: Vital Signs: Temperature 96.3 degrees, pulse 109, respirations 34, blood pressure 157/99, O2 saturation 97%. General: He is sedated on Versed. He is unresponsive except to some painful stimuli. HEENT: Normocephalic atraumatic. Extraocular muscle movement cannot be assessed. Pupils are equal and round. Sclerae anicteric. Neck: Supple. Trachea is midline. CV: Tachycardic and regular. Respiratory: Clear bilateral breath sounds and tachypneic. GI: Soft. No organomegaly or mass. Nondistended. Extremities: No clubbing, cyanosis, or edema. Skin: Warm and dry. No rash. LABORATORY: White blood cell count 7, hemoglobin 12, hematocrit 40, platelet count 300,000 pH 7.2, pCO2 60, PO2, PaO2 419, bicarb 21 base deficit -5. Lactate 7.7. Sodium 145, potassium 5.0, chloride 98, CO2 26, BUN 18, creatinine 1.2, glucose 309. Liver function tests reviewed and unremarkable. IMAGING: Chest x-ray this morning shows some gastric distention. The previous opacity in the left lower lobe has resolved and I believe I can see evidence of tracheal stenosis on the chest x- ray. ASSESSMENT AND PLAN: A 19-year-old male status post cardiac arrest and respiratory failure, now with probable tracheal stenosis and difficult airway. We are planning a tracheostomy this morning. I discussed the risks and benefits with his family including bleeding, infection, dislodgement of the tracheal tube, ongoing respiratory failure and other imponderables. They understand and agree to proceed. We will further evaluate his upper airway abnormality with the ENT consult once he has a definitive airway in place. cc: Laith Gomez MD
--- NOTE | 2019-07-15 21:18 | CONSULTATION ---
DATE OF CONSULTATION: 07/15/2019 HISTORY OF PRESENT ILLNESS: A 19-year-old young man who was found unresponsive at home. At the scene, he was in asystole. He was brought to the emergency room. In controlling the airway, there was thought to be possible tracheal stenosis. The airway was initially controlled with the LMA. He was subsequently taken to the OR, where tracheotomy was accomplished. His airway was now stable. The there is a question of whether he has a tracheal stenosis. He does have a history of intubation in NICU for several weeks when he was born. In talking with his aunt today, he does enjoy sports including boxing, but his aunt said he had to take occasional breaks because of asthma attacks. In hearing some of her description, it did sound like it could the asthma wheezing or maybe stridor. His airway is now secured. He is on the ventilator. PHYSICAL EXAM: With fiberoptic scope the larynx is identified. The epiglottis is edematous, mildly to moderate, but is not obstructing the airway. The area epiglottic folds are normal. The true vocal cords were edematous, but appear normal. They were in the medial position. I am able to pass the fiberoptic scope through the course to the level of the trach tube. The trach tube is easily visible. There is some swelling in the subglottic area, but no obvious stenosis. It is difficult to tell with the secretions, but there seems to be adequate room in the subglottic area. IMPRESSION: Possible tracheal stenosis. Airway currently controlled and on a ventilator. It is difficult to know for sure, but I am able to pass the scope through the cords and visualize the trach tube. As the swelling resolves, repeat exam might give more information. He does have a history that might suggest tracheal stenosis. The possibility of tracheal stenosis came with the difficulty of intubation. To resolve this question will require some time for the swelling to resolve and then perhaps we can get a better look. cc: Bobby Oliveira MD
--- NOTE | 2019-07-15 22:16 | CONSULTATION ---
DATE OF CONSULTATION: 07/15/2019 NEUROLOGY CONSULTATION: LOCATION: ICU #8. HISTORY OF PRESENT ILLNESS: Mr. Cordero is a young man with recent collapse. I have reviewed the history recorded for this admission. Family is at the bedside and reports he was sitting up awake and alert, active, happy, laughing about 24 hours ago. Last night, he seemed to be less active than usual. He did not have conversation. He got up himself to the bathroom, and when he returned, very early this morning, he seemed to have trouble walking. He began to collapse. He did not sustain head injury. Family reports he did not complain of headache, chest pain, or shortness of breath, but he was clearly short of breath. According to family, he stopped breathing. Ambulance was summoned. Here, workup is in progress. He has been managed with hypothermia protocol. He is paralyzed and sedated with medicine . Lab showed drug screen all negative. There was mildly elevated CK 229. Phosphorus was 9.3. Liver enzymes were mildly elevated. Blood sugar has ranged 180 to 300. He has not had brain imaging. Cardiac workup is in progress. PHYSICAL EXAMINATION: On exam, he is supine, intubated through tracheostomy, not moving. There is no lateral eye movement with passive head turning. There is no pupil reaction to bright light. There is no corneal reflex bilaterally. Limb tone is reduced throughout and symmetric. Plantar response is silent bilaterally. Neck is supple. IMPRESSION: Global encephalopathy consistent with heavy sedation as administered. With paralytics on board, I cannot say much from neurologic standpoint. Reason for this episode is not clear to me. Brainstem event is difficult to exclude in paralyzed and sedated patient without imaging. History does not sound like seizure, head injury, or other primary central nervous system event. I discussed uncertain prognosis with mother at the bedside. We might consider brain imaging and EEG later, depending on his clinical course and appearance after warming. No specific suggestions right now from Neurology standpoint. Thanks for asking me to see Mr. Cordero. cc: MD JOANA Perez III
[2019-07-15 23:07] LABS: AGAP 16; BUN 14 mg/dL (8-22); CALCIUM 8.9 mg/dL (8.8-10.2); CHLORIDE 107 mmol/L (98-107); COSMO 291; CREATININE 0.7 mg/dL (0.7-1.2); ESTIMATED GFR > 60; GLUCOSE 190 mg/dL (70-104); POTASSIUM 5.2 mmol/L (3.5-5.1); SODIUM 143 mmol/L (136-145); TCO2 20 mmol/L (25-35)
[2019-07-15 23:20] LABS: ALLEN TEST YES; BLOOD TYPE ARTERIAL; METHB 1.1 % (0.0-1.5); O2(CT) 21.9 mL/dL (15.0-23.0); O2HB 97.7 % (95.0-99.0); PCO2(98.6) 42 mmHg (35-45); PO2(98.6) 196 mmHg (60-100); SAMPLE BLOOD; SAO2 99.7 % (95.0-100.0); SRATE 16 BPM; THB 15.7 g/dL (11.5-17.4); TVOL 500 mL; pH(98.6) 7.31 (7.35-7.45)
[2019-07-15 23:22] LABS: MODALITY VENTILATOR
[2019-07-16] MEDS: LACRI-LUBE OPH OINT BOTH EYES SCH ×3 (00:10→12:33)
--- NOTE | 2019-07-16 00:34 | ECHO REPORT ---
ORDER DATE: 07/15/2019 MEASUREMENTS: Septal thickness 0.8, left ventricular internal diameter in diastole 5.7, posterior wall thickness 0.8. Aortic root 2.9. Left atrium 2.9. SUMMARY: 1. Adequate quality study. 2. Aortic valve is trileaflet and opens normally on 2-dimensional images. Peak gradient across aortic valve is less than 5 mmHg. Mitral, tricuspid, and pulmonic valves are without evidence of structural abnormality with mild mitral regurgitation, mild tricuspid regurgitation, and trace pulmonic insufficiency. The estimated systolic PA pressure by Doppler is 25 mmHg. Aortic root is normal in size. 3. Borderline left ventricular enlargement with normal wall thickness demonstrated. Estimated left ejection fraction approximately 15 to 20 percent in the setting of severe global hypokinesis. Left atrium, right atrium, right ventricle are normal in size with grossly preserved right ventricular systolic function. Linear echodensity in right atrium probably represents catheter tip. 4. No pericardial effusion. 5. Appearance of inferior vena cava suggests normal central venous pressure. cc: MD Indira Dugan MD
[2019-07-16] MEDS: MAXIPIME 1 GM in NS 50 ML IV SCH ×2 (01:06→13:59)
[2019-07-16] MEDS: ZYVOX 600 MG/D5W 600 MG/300 ML IVPB IV SCH ×2 (01:06→13:59)
--- NOTE | 2019-07-16 01:37 | EKG Report ---
Test Performed on : 07/16/2019 01:33:23 AM Test Reason : FULL ARREST Blood Pressure : / mmHG Vent. Rate : 132 BPM Atrial Rate : 132 BPM P-R Int : 134 ms QRS Dur : 082 ms QT Int : 314 ms P-R-T Axes : 073 090 048 degrees QTc Int : 465 ms Sinus tachycardia. Rightward axis Borderline ECG When compared with ECG of 15-JUL-2019 11:08, (Unconfirmed) Vent. rate has increased BY 45 BPM Confirmed by Pricilla GRECO, Yusuf Walker ([id number]) on 07/16/2019 9:02:25 AM
[2019-07-16] MEDS ORDERED: CARDIZEM 125 MG/D5W 125 MG/125 ML IVPB IV SCH (01:45)
[2019-07-16] MEDS: FENTANYL 1,000 MICROGM in NS 80 ML IV SCH ×2 (01:59→04:47)
[2019-07-16 02:37] LABS: MAGNESIUM 2.5 mg/dL (1.5-2.7); PHOSPHORUS 4.1 mg/dL (2.7-4.5)
[2019-07-16 04:29] LABS: ALLEN TEST YES; BE -3.7 mmoll (-3.0-3.0); BLOOD TYPE ARTERIAL; METHB 1.2 % (0.0-1.5); O2(CT) 23.1 mL/dL (15.0-23.0); O2HB 97.4 % (95.0-99.0); PCO2(98.6) 39 mmHg (35-45); PO2(98.6) 157 mmHg (60-100); SAMPLE BLOOD; SAO2 99.7 % (95.0-100.0); SRATE 16 BPM; THB 16.7 g/dL (11.5-17.4); TVOL 500 mL; pH(98.6) 7.35 (7.35-7.45)
[2019-07-16 04:30] LABS: MODALITY VENTILATOR
[2019-07-16] MEDS: NIMBEX 80 MG in NS 160 ML IV SCH ×2 (04:45→12:09)
[2019-07-16 04:46] LABS: INR 1.26
[2019-07-16] MEDS: NS 1,000 ML IV SCH (04:46)
[2019-07-16] MEDS: ATIVAN IV SCH ×4 (04:47→16:08)
[2019-07-16 05:24] LABS: ESTIMATED GFR > 60
[2019-07-16 05:35] LABS: AGAP 12; ALB/GLOB RATIO 1.4; ALBUMIN 3.7 g/dL (3.5-5.0); ALKALINE PHOSPHATASE 62 U/L (32-122); AMYLASE 450 U/L (20-200); BUN 11 mg/dL (8-22); CALCIUM 9.2 mg/dL (8.8-10.2); CHLORIDE 112 mmol/L (98-107); COSMO 291; CREATININE 0.6 mg/dL (0.7-1.2); GLUCOSE 210 mg/dL (70-104); GOT 68 U/L (10-34); GPT 38 U/L (10-44); LIPASE 7 U/L (13-60); PHOSPHORUS 1.3 mg/dL (2.7-4.5); SODIUM 143 mmol/L (136-145); TCO2 19 mmol/L (25-35); TOTAL BILIRUBIN 0.47 mg/dL (0.20-1.00); TOTAL PROTEIN 6.3 g/dL (6.3-8.3)
[2019-07-16] MEDS: SODIUM CHLORIDE 0.9% INJ SCH ×2 (06:26→18:33)
[2019-07-16] MEDS: PEPCID IV SCH ×2 (06:26→18:33)
--- NOTE | 2019-07-16 06:32 | CONSULTATION ---
DATE OF CONSULTATION: 07/15/2019 REQUESTING PROVIDER: Dr. Indira Ewing MD REASON FOR CONSULTATION: Cardiopulmonary arrest and asthma. HISTORY OF PRESENT ILLNESS: This is a 19-year-old male with a medical history of asthma. He was found unresponsive by his uncle at home. Per the H and P, his uncle apparently tried to do CPR and called EMS. EMS arrived within 20 minutes. After the EMS arrived, they started compression and got the pulse back. On the way to the hospital, the patient lost pulse again and CPR resumed. Upon arrival to the ER, he still underwent CPR with 3 doses of epinephrine. Intubation has been tried several times but failed likely due to tracheal stenosis because of his condition of prematurity. The surgeon was consulted to get a tracheostomy. Currently, he is on AC mechanical ventilator through the tracheostomy. He is on the hypothermia protocol with a fentanyl drip on. The urine in the drainage bag is yellow cloudy. His mother and family friends are at the bedside. The patient's mother who lives with the patient reported that the patient has been actually very active and pretty healthy except he has asthma. She reported that before the patient became unresponsive, he walked to the bathroom and coughed up some thick greenish sputum in the sink. The patient does have chronic cough on and off with wheezing especially if he works outside in the summertime. Patient's mother reported patient had no fever, chills or any complaint about chest pain, palpitations, bowel habit change, or urination discomfort. The patient is on albuterol nebulizer at home as needed for asthma, but he apparently has not been using it for a long time. The patient's mother reported that the patient started a new job 4 days ago. 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 PAST MEDICAL HISTORY: Asthma and other lung issues from premature when patient was a baby. PAST SURGICAL HISTORY: None. FAMILY HISTORY: Reviewed and noncontributory. SOCIAL HISTORY: The patient lives at home with his mother. He has no history of alcohol, tobacco, or illicit drug use. REVIEW OF SYSTEMS: Unable to be obtained. PHYSICAL EXAMINATION: Vital Signs: Temperature 96.3, blood pressure 127/80, pulse 81, respiratory rate 20, and oxygen saturation 100% on AC mechanical ventilator with spontaneous rate of 15. FiO2 100%, tidal volume 500, and PEEP of 5. General: Lying in bed sedated on AC mechanical ventilator through the tracheostomy. HEENT: Atraumatic, normocephalic. Trachea midline. Respiratory: Mechanical ventilated symmetrical excursion. Clear to auscultation. Cardiovascular: Regular rate and rhythm. Gastrointestinal: Soft and nondistended. Normoactive bowel sounds in all 4 quadrants. Extremities: No pedal edema. No cyanosis. No clubbing. Dorsalis pedis 2+ bilaterally. Neurologic: Sedated and unresponsive to verbal stimuli. LABORATORY DATA: White blood cells 16.8, hemoglobin 15.3, hematocrit 47.6, and platelets 329,000. Sodium 147, potassium 3.6, chloride 104, carbon dioxide 30, BUN 20, creatinine 0.9, glucose 185. ABG with pH 7.21, pCO2 60, PO2 419, HC03 21.0, base excess -5.0, oxyhemoglobin 98.0, and lactate 7.70. IMAGING DATA: Chest x-ray showed gastric expansion. ASSESSMENT: This is a 19-year-old male with a medical history of asthma and some lung issue from the premature when he was a baby. He underwent a full cardiac pulmonary arrest early this morning, and currently he is intubated. Currently, he is on AC mechanical ventilator through the tracheostomy. 1. Status post cardiac pulmonary arrest. 2. Acute respiratory failure. He underwent multiple attempts for intubation in the ER. Currently, he has a tracheostomy. He is on AC mechanical ventilator through the tracheostomy. 3. Possible aspiration pneumonia. 4. Asthma. No flare at this time. 5. Likely upper airway stenosis secondary to prematurity. PLAN: 1. Continue AC mechanical ventilator, and we will start weaning trials when appropriate. 2. Continue antibiotic per Dr. Fairchild. 3. Follow up with ABG CBC, CMP, troponin, sputum culture, urine culture, blood culture, and chest x-ray. 4. Continue GI and DVT prophylaxis. 5. Further recommendations pending hospital course. Thank you for the courtesy of this consult. Dictated by JC Wallace for Jannet Robledo MD cc: JC Wallace MD [facility]
[2019-07-16 06:42] LABS: BASO# 0.01 X1000 (0.0-0.2); BASO% 0.1 % (0.0-0.8); HEMATOCRIT 47.5 % (42.0-52.0); HEMOGLOBIN 16.1 g/dL (14.0-18.0); IMM GRAN# 0.04 X1000 (0.0-0.04); IMM GRAN% 0.3 % (0.0-0.5); LYMPH# 0.67 X1000 (1.2-3.4); LYMPH% 5.6 % (20.5-51.1); MCH 29.1 PG (27-31); MCHC 33.9 g/dL (33-37); MCV 85.7 FL (81-99); MONO# 0.49 X1000 (0.11-0.59); MONO% 4.1 % (1.7-9.3); MPV 9.6 FL (7.4-10.4); NEUT# 10.72 X1000 (1.4-6.5); NEUT% 89.9 % (42.2-75.2); PLT 221 X1000 (130-400); RBC 5.54 XMIL (4.7-6.1); RDW 12.3 % (11.5-14.5); WBC 11.93 X1000 (4.8-10.8)
[2019-07-16] MEDS: SODIUM PHOSPHATE 20 MMOL in NS 250 ML IV PRN (06:44)
[2019-07-16] MEDS: LOPRESSOR IV PRN ×2 (06:45→10:20)
--- NOTE | 2019-07-16 07:35 | Diag Imaging Result Doc PS360 ---
EXAM: CHEST-PORTABLE INDICATION: vent TECHNIQUE: One view COMPARISON: 07/15/2019 FINDINGS: Support tubes and lines are in stable positions. Bilateral infiltrates most compatible with edema are approximately stable. No new consolidation is identified. Cardiac silhouette is stable. IMPRESSION: Stable chest. Electronically signed by Enio Weeks 07/16/2019 7:33 AM
[2019-07-16] MEDS ORDERED: D50W SYRINGE IV PRN (08:29)
[2019-07-16 10:34] LABS: AGAP 20; BUN 9 mg/dL (8-22); CALCIUM 7.8 mg/dL (8.8-10.2); CHLORIDE 113 mmol/L (98-107); COSMO 324; CREATININE 0.6 mg/dL (0.7-1.2); ESTIMATED GFR > 60; GLUCOSE 460 mg/dL (70-104); POTASSIUM 3.4 mmol/L (3.5-5.1); SODIUM 154 mmol/L (136-145); TCO2 21 mmol/L (25-35)
[2019-07-16] MEDS: NS 500 ML IV SCH (11:22)
--- NOTE | 2019-07-16 11:22 | PROGRESS NOTE ---
DATE: 07/16/2019 SUBJECTIVE: This morning, Mr. Cordero continues to be intubated via tracheostomy. Family members were all at the bedside at the time of the encounter. No new complaints. He is currently under the hypothermia protocol. OBJECTIVE: Vital signs: His vitals, blood pressure is 96/69, pulse 90, respiration is 18, temperature is 93.9. General: On general exam, Mr. Cordero is a 19-year-old -[place] gentleman. He is in bed, intubated and synchronizing well with the ventilator. Respiratory system: There is good air entry bilateral, some crackles posteriorly. Cardiovascular: Regular rate and rhythm. I did not hear any murmurs. Abdomen: Soft. Bowel sounds present. Extremities: No pedal edema. There is a Crooks catheter in place. There is a tracheostomy tube in place. An NG tube is also in place. The patient has a right side PICC line as well. LABORATORY DATA: WBC is 11.93, hemoglobin is 16.1, platelet count of 221. Chemistry is also reviewed, unremarkable. Creatinine is normal. The patient's TSH is slightly reduced. ASSESSMENT: 1. Status post cardiac arrest. The patient is currently going through the hypothermia protocol. 2. Acute respiratory failure after cardiac arrest. The patient did have difficult intubation, so LMA was used initially. Surgery was consulted. A tracheostomy was placed yesterday. He is doing fairly okay now. 3. Unresponsiveness after cardiac arrest. The patient is currently on sedation and paralytic so we are unable to evaluate his neurological status. Neurology has been consulted however. 4. Dilated cardiomyopathy with ejection fraction of 15% to 20% in the setting of severe global hypokinesis. 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 Unsure if this is related to the ongoing stress or that the patient does have an underlying cardiac disease that was not diagnosed before this episode. Either case, I think that echocardiogram will need to be repeated at a later time when the patient is more stable. Cardiology is on board. 5. Elevated troponins. The patient's troponins are elevated, this morning 0.305. I think this is probably all related to demand ischemia versus stress cardiomyopathy, which can all elevate troponins. Cardiology is on board. We will follow up with further recommendations from them. 6. Abnormal thyroid-stimulating hormone. We will get a free T4 to see what is the trend. 7. Pulmonary edema most likely due to left heart failure from the stress cardiomyopathy, however, a superimposed aspiration pneumonitis cannot be ruled out, so patient has been started on antibiotic. We will also discontinue the IV fluids, will continue to follow I&Os the patient might need diuretics at a later date. So this morning, Mr. Cordero is fairly stable on the ventilator going through the hypothermia protocol. I understand they will start rewarming some time this afternoon. Will still be pending the CTA of the lungs as well as the CT scan of the head once he comes out of the hypothermia protocol. The patient is being supported with the ventilator. He is also getting antimicrobial therapy. He is being seen by Pulmonary Medicine, Cardiology, Surgery for now. The patient was also seen by Dr. Oliveira, an ENT surgeon. I have explained my findings and the plan going forward with the family members, who were at the bedside at the time of the encounter. CRITICAL TIME SPENT: 45 minutes. cc: Raghavendra Fairchild MD MTDD
[2019-07-16] MEDS: LOVENOX SUBQ SCH ×2 (12:33→23:47)
[2019-07-16 12:34] LABS: ALLEN TEST YES; BE -2.8 mmoll (-3.0-3.0); BLOOD TYPE ARTERIAL; HCO3-(ACT) 22.7 mmoll (20.0-26.0); METHB 1.3 % (0.0-1.5); O2(CT) 22.9 mL/dL (15.0-23.0); O2HB 96.2 % (95.0-99.0); PCO2(98.6) 34 mmHg (35-45); PO2(98.6) 86 mmHg (60-100); SAMPLE BLOOD; SAO2 98.7 % (95.0-100.0); THB 16.9 g/dL (11.5-17.4)
[2019-07-16 12:36] LABS: MODALITY VENTILATOR
[2019-07-16 12:37] LABS: SRATE 16 BPM; TVOL 500 mL
--- NOTE | 2019-07-16 15:02 | PROGRESS NOTE ---
DATE: 07/16/2019 SUBJECTIVE: Mr. Cordero continues heavily sedated, medically paralyzed, intubated and mechanically ventilated. OBJECTIVE: Pupils are large, irregular, and unreactive to bright light. There is no corneal reflex. There is no lateral or vertical eye movement with passive head turn and tilt. Neck is supple. Limb tone is symmetric. IMPRESSION: Global encephalopathy, concern for anoxic brain injury but cannot make any specific comment with current sedatives and paralytics on board. Further plans will depend on his clinical course after warming. Thanks for asking neurology to see Mr. Cordero. cc: Nargis Perry III, MD
[2019-07-16 15:29] LABS: CHLORIDE 116 mmol/L (98-107); POTASSIUM 3.3 mmol/L (3.5-5.1); SODIUM 151 mmol/L (136-145)
[2019-07-16 15:30] LABS: AGAP 13; BUN 10 mg/dL (8-22); CALCIUM 9.1 mg/dL (8.8-10.2); COSMO 304; CREATININE 0.6 mg/dL (0.7-1.2); ESTIMATED GFR > 60; GLUCOSE 196 mg/dL (70-104); TCO2 22 mmol/L (25-35)
[2019-07-16] MEDS: LEVOPHED 8 MG in D5 1/2 NS 250 ML IV SCH (16:49)
[2019-07-16 16:52] LABS: ALLEN TEST YES; BLOOD TYPE ARTERIAL; HCO3-(ACT) 24.1 mmoll (20.0-26.0); METHB 1.3 % (0.0-1.5); O2(CT) 22.1 mL/dL (15.0-23.0); PCO2(98.6) 34 mmHg (35-45); PO2(98.6) 84 mmHg (60-100); SAMPLE BLOOD; SAO2 98.5 % (95.0-100.0); SRATE 16 BPM; THB 16.4 g/dL (11.5-17.4); TVOL 500 mL; pH(98.6) 7.43 (7.35-7.45)
[2019-07-16 16:53] LABS: MODALITY VENTILATOR
[2019-07-16 17:49] LABS: BASO# 0.01 X1000 (0.0-0.2); BASO% 0.1 % (0.0-0.8); EOS# 0.01 X1000 (0.0-0.7); EOS% 0.1 % (0.0-10.0); HEMATOCRIT 44.5 % (42.0-52.0); HEMOGLOBIN 15.2 g/dL (14.0-18.0); IMM GRAN# 0.05 X1000 (0.0-0.04); IMM GRAN% 0.3 % (0.0-0.5); LYMPH# 0.85 X1000 (1.2-3.4); LYMPH% 4.8 % (20.5-51.1); MCH 29.1 PG (27-31); MCHC 34.2 g/dL (33-37); MCV 85.2 FL (81-99); MONO# 1.01 X1000 (0.11-0.59); MONO% 5.7 % (1.7-9.3); MPV 9.7 FL (7.4-10.4); NEUT# 15.77 X1000 (1.4-6.5); PLT 245 X1000 (130-400); RBC 5.22 XMIL (4.7-6.1); RDW 12.4 % (11.5-14.5)
[2019-07-16 17:50] LABS: INR 1.43; PROTIME 17.7 Seconds (11.0-16.0)
[2019-07-16] MEDS ORDERED: POTASSIUM CHLORIDE 40 MEQ/SWI 40 MEQ/100 ML IVPB IV ONE (17:54)
[2019-07-16 18:02] LABS: BANDS 10 % (0-1); LARGE PLATELETS OCCASIONAL; LYMPHS 4 % (21-51); MONO 4 % (1-9); SEGS 82 % (42-75)
[2019-07-16 18:05] LABS: MAGNESIUM 1.7 mg/dL (1.5-2.7); PHOSPHORUS 1.2 mg/dL (2.7-4.5)
[2019-07-16 21:24] LABS: AGAP 12; BUN 12 mg/dL (8-22); CALCIUM 9.2 mg/dL (8.8-10.2); CHLORIDE 117 mmol/L (98-107); COSMO 300; CREATININE 0.9 mg/dL (0.7-1.2); ESTIMATED GFR > 60; GLUCOSE 136 mg/dL (70-104); POTASSIUM 4.4 mmol/L (3.5-5.1); SODIUM 150 mmol/L (136-145); TCO2 21 mmol/L (25-35)
--- NOTE | 2019-07-16 21:28 | PULMONOLOGY PROGRESS NOTE ---
DATE: 07/16/2019 SUBJECTIVE: Patient remains sedated and paralyzed. He is currently on the hypothermia protocol and mechanical ventilation. OBJECTIVE: Vital Signs: Current temperature 93.9 degrees, heart rate 98, respiratory rate 16, oxygen saturation 100%. HEENT: Pupils are midpoint and poorly reactive. Oropharynx appears clear. Neck: Fresh tracheostomy in place. There is some blood within the tracheostomy. Chest: Coarse rhonchi bilaterally. Cardiac: Regular rate. Normal S1, normal S2. Abdomen: Soft. Extremities: Cool to the touch. LABORATORIES: Chest x-ray reveals bilateral infiltrates. White blood count 11.93, hemoglobin 16.1, platelet count 221,000. Sodium 154, potassium 3.4, chloride 113, bicarbonate level 21, BUN 9, creatinine 0.6. Arterial blood gas: PH 7.40, pCO2 of 34, pO2 of 86 on 30% FiO2. Lactate now normal. IMPRESSION: A 19-year-old with history of premature and 4 week mechanical ventilation, history of asthma by report without formal pulmonary evaluation, who presents with cardiopulmonary arrest. He was a difficult intubation and tracheal stenosis is suspected. He underwent an emergent tracheostomy placement. The patient has: 1. Acute hypoxemic respiratory failure. 2. Tracheal stenosis, status post emergent tracheostomy. 3. Severe left ventricular dysfunction/systolic dysfunction, Takotsubo's cardiomyopathy suspected. 4. Status post cardiac arrest with possible anoxic encephalopathy. PLAN: 1. Continue aggressive support given the patient's young age. 2. Complete hypothermia protocol. 3. Anticipate CT scan of the brain tomorrow. We will also perform CT scan of the neck, although he will need a formal visualization of the upper airway. 4. Overall prognosis is guarded. Family was at the bedside and all questions were answered. cc: Pasha Isaacs MD
--- NOTE | 2019-07-16 21:36 | GENERAL SURGERY PROGRESS NOTE ---
DATE: 07/16/2019 SUBJECTIVE: There have been no acute events overnight. OBJECTIVE: Vital Signs: Afebrile. Vital signs are stable. Neck: The tracheostomy is intact without any active bleeding. ASSESSMENT AND PLAN: A 19-year-old male status post cardiac arrest and respiratory failure, now status post tracheostomy. We will continue supportive care and plan future repeat direct laryngoscopy, when his edema has improved, to evaluate for subglottic stenosis. cc: Laith Gomez MD
[2019-07-17] MEDS: LEVOPHED 8 MG in D5 1/2 NS 250 ML IV SCH ×2 (00:26→13:00)
[2019-07-17 00:52] LABS: ALLEN TEST YES; BLOOD TYPE ARTERIAL; HCO3-(ACT) 24.8 mmoll (20.0-26.0); METHB 1.2 % (0.0-1.5); MODALITY VENTILATOR; O2(CT) 21.8 mL/dL (15.0-23.0); O2HB 94.8 % (95.0-99.0); PCO2(98.6) 31 mmHg (35-45); PO2(98.6) 71 mmHg (60-100); SAMPLE BLOOD; SAO2 97.4 % (95.0-100.0); SRATE 16 BPM; THB 16.4 g/dL (11.5-17.4); TVOL 500 mL; pH(98.6) 7.47 (7.35-7.45)
[2019-07-17] MEDS: MAXIPIME 1 GM in NS 50 ML IV SCH ×2 (01:24→13:01)
[2019-07-17] MEDS: ZYVOX 600 MG/D5W 600 MG/300 ML IVPB IV SCH ×2 (01:24→13:01)
[2019-07-17] MEDS: LOPRESSOR IV PRN (02:22)
[2019-07-17 02:50] LABS: ESTIMATED GFR > 60
[2019-07-17 03:18] LABS: AGAP 13; BUN 12 mg/dL (8-22); CHLORIDE 121 mmol/L (98-107); COSMO 314; CREATININE 0.9 mg/dL (0.7-1.2); GLUCOSE 185 mg/dL (70-104); POTASSIUM 4.6 mmol/L (3.5-5.1); SODIUM 156 mmol/L (136-145); TCO2 22 mmol/L (25-35)
[2019-07-17 04:32] LABS: ALLEN TEST YES; BE 1.2 mmoll (-3.0-3.0); BLOOD TYPE ARTERIAL; HCO3-(ACT) 25.8 mmoll (20.0-26.0); METHB 1.2 % (0.0-1.5); MODALITY VENTILATOR; O2(CT) 22.1 mL/dL (15.0-23.0); O2HB 96.8 % (95.0-99.0); PCO2(98.6) 31 mmHg (35-45); PO2(98.6) 108 mmHg (60-100); SAMPLE BLOOD; SAO2 99.3 % (95.0-100.0); SRATE 16 BPM; THB 16.2 g/dL (11.5-17.4); TVOL 500 mL; pH(98.6) 7.49 (7.35-7.45)
[2019-07-17 05:27] LABS: HEMATOCRIT 44.6 % (42.0-52.0); HEMOGLOBIN 15.5 g/dL (14.0-18.0); IMM GRAN# 0.04 X1000 (0.0-0.04); IMM GRAN% 0.2 % (0.0-0.5); LYMPH# 1.31 X1000 (1.2-3.4); LYMPH% 7.9 % (20.5-51.1); MCH 29.2 PG (27-31); MCHC 34.8 g/dL (33-37); MONO# 0.63 X1000 (0.11-0.59); MONO% 3.8 % (1.7-9.3); MPV 10.6 FL (7.4-10.4); NEUT# 14.68 X1000 (1.4-6.5); NEUT% 88.1 % (42.2-75.2); PLT 262 X1000 (130-400); RBC 5.31 XMIL (4.7-6.1); RDW 12.5 % (11.5-14.5); WBC 16.66 X1000 (4.8-10.8)
[2019-07-17 05:38] LABS: MAGNESIUM 1.9 mg/dL (1.5-2.7); PHOSPHORUS 1.2 mg/dL (2.7-4.5)
[2019-07-17 05:45] LABS: INR 1.38; PROTIME 17.2 Seconds (11.0-16.0)
[2019-07-17] MEDS ORDERED: POTASSIUM PHOSPHATE 40 MEQ in NS 250 ML IV ONE (06:43)
[2019-07-17] MEDS ORDERED: D5W 1,000 ML IV SCH ×2 (06:45→12:30)
--- NOTE | 2019-07-17 07:42 | Diag Imaging Result Doc PS360 ---
CHEST-PORTABLE - 07/17/2019 INDICATION: Post code COMPARISON: 07/16/2019 FINDINGS: There is a small left apical pneumothorax measuring about 2.6 cm. Stable tracheostomy tube, nasogastric tube, and right PICC line in good position. There is decreased density of the extensive bilateral infiltrates with upper lobe predominance. Heart size and pulmonary vascularity remain normal. Probable trace pleural effusions. IMPRESSION: 1. Small left apical pneumothorax. 2. Improvement in the extensive bilateral infiltrates. 3. This report was discussed with GLORIA Montoya on 07/17/2019 at 7:35 AM and was readback. Electronically signed by Akbar Finnegan 07/17/2019 7:40 AM
--- NOTE | 2019-07-17 09:47 | Diag Imaging Result Doc PS360 ---
CT HEAD W/WO CONTRAST - 07/17/2019 INDICATION: unresponsiveness after cardiac arrest TECHNIQUE: COMPARISON: None FINDINGS: There is severe diffuse cerebral edema. There are no CSF spaces visible, either extra-axial spaces or in ventricles. There is severe uncal herniation. There is characteristic hypodensity of the basal ganglia and thalami compatible with infarction. The skull is intact. The sinuses are grossly clear. There is no abnormal contrast enhancement. The cerebral arteries are extremely constricted or completely occluded. The same is true of the basilar artery system. IMPRESSION: Findings highly correlated with complete brain . This exam was performed using automated exposure control, adjustment of mA or kV according to patient size, and/or use of iterative reconstruction technique Electronically signed by Akbar Finnegan 07/17/2019 9:45 AM
--- NOTE | 2019-07-17 10:04 | Diag Imaging Result Doc PS360 ---
CT ANGIOGRM PULMONARY ARTERIES - 07/17/2019 INDICATION: Acute respiratory failure TECHNIQUE: Axial CT images were obtained after administering intravenous contrast. Coronal MIP images were generated. COMPARISON: Prior chest x-ray FINDINGS: There is a tracheostomy tube and nasogastric tube in good position. There appears to be a small defect in the left lower lobe medial basilar pulmonary artery. This may represent a tiny pulmonary embolism. There are extensive bilateral infiltrates involving all lobes, worse in the upper lobes. There is a small left pneumothorax. This is perhaps 10%. Upper abdominal images are grossly normal. Heart size is normal. There is some trace mucous in the right mainstem bronchus. No significant airway opacification otherwise. Bony structures are intact. IMPRESSION: 1. Tiny, solitary pulmonary embolism in a left lower lobe segmental artery. This appears nonocclusive. 2. Tiny left pneumothorax. 3. Extensive bilateral multilobar infiltrates compatible with pneumonia or aspiration. This exam was performed using automated exposure control, adjustment of mA or kV according to patient size, and/or use of iterative reconstruction technique Electronically signed by Akbar Finnegan 07/17/2019 10:01 AM
--- NOTE | 2019-07-17 10:58 | Diag Imaging Result Doc PS360 ---
CHEST-PORTABLE - 07/17/2019 9:51 AM INDICATION: dyspnea COMPARISON: 5:24 AM FINDINGS: Stable tracheostomy tube and nasogastric tube. Stable small left apical pneumothorax. Stable extensive bilateral infiltrates compatible with pneumonia or aspiration. Heart size remains normal. IMPRESSION: No change from prior. Electronically signed by Akbar Finnegan 07/17/2019 10:56 AM
--- NOTE | 2019-07-17 11:26 | PROGRESS NOTE ---
DATE: 07/17/2019 SUBJECTIVE: This morning, there was no family member at the bedside at the time of this encounter. His nurse was at the bedside, however. I have been told that the rewarming process ended about 6:30 last evening. Since then Mr. Cordero has really not shown any remarkable purposeful movement. Occasionally, I understand intermittently the blood pressure will go up or down and the heart rate might also go a little up and down. That has been fairly stable for the last 8 hours. OBJECTIVE: Vital Signs: His current vitals blood pressure is 108/71, pulse is 107, respiration is 16, temperature is degrees 97.0. General: Mr. Cordero is a 19-year-old gentleman. He is in bed. He is not showing any have movement at all. HEENT: Mucosa is pink and moist. Anicteric. Acyanotic. Neck: Supple. There is a trach in place. Good air entry bilateral. No crackles. No rhonchi. Cardiovascular: Regular rate and rhythm. No murmurs, no rubs, no gallops. Gastrointestinal: Abdomen is soft. Bowel sounds are present. There is a Crooks catheter in place. Extremities: No pedal edema. Central nervous system: FIRER HELPER patient is motionless. No movement even to extreme painful stimulation. There is no gag reflex. There is no corneal reflex. Both pupils are about 4 to 5 mm dilated and they are nonreactive. The patient is breathing exactly 16 per minute and that is the same setting on the ventilator. INTAKE AND OUTPUT: Urine output was 3800. The patient is currently negative balance of 8879. LABORATORY DATA: WBC is 16.66, hemoglobin is 15.5, platelet count of 261,000. ABG shows pCO2 of 31, PaO2 108, pH of 7.49. Sodium is 156, potassium is 4.6, chloride is 121, phosphorus is 1.2. We are going to replace this. ASSESSMENT: 1. Status post cardiac arrest. The patient had gone through the hypothermia protocol. Rewarming ended last evening. 2. Acute respiratory failure after cardiac arrest. The patient had a very hard intubation because of tracheal stenosis. He had to undergo emergent tracheostomy. 3. Unresponsiveness after cardiac arrest. At this point, Mr. Cordero has been off sedation for over 8 hours. Still no showing any purposeful movement. He does not seem to have cortical function and subcortical function. He does not seems to have any gag reflex at this point. No corneal reflex. Pupils are blown. At this point, I do not think Mr. Cordero has any vitality. 4. Elevated troponins on presentation, presumably demand ischemia versus stress cardiomyopathy. 5. Pulmonary edema secondary to congestive heart failure. 6. Severe left ventricle systolic dysfunction, presumably stress cardiomyopathy. 7. Alleged Spice use. 8. Electrolyte abnormality including hypernatremia and hyperchloremia. We will start the patient on gentle D5 to get this sodium a little better. In general, plan at this point, Mr. Cordero does not seems to show any signs of vitality. No painful stimulation. The brainstem reflexes all seem to be not functioning at this point, except the medulla that is keeping the blood pressure and the pulse (cardiac activity). We are still pending the CT scan of the brain. We will also take advantage of that and do a perfusion brain scan just to see if there are any signs. Pending the family members to discuss the current findings with them and then see what will be the plan going forward. cc: Raghavendra Fairchild MD
[2019-07-17] MEDS ORDERED: NS 1,000 ML ONE (12:33)
[2019-07-17 12:36] LABS: BLOOD TYPE ARTERIAL; SAMPLE BLOOD
[2019-07-17 12:37] LABS: ALLEN TEST NO; BE 0.5 mmoll (-3.0-3.0); HCO3-(ACT) 25.2 mmoll (20.0-26.0); O2(CT) 22.1 mL/dL (15.0-23.0); O2HB 94.4 % (95.0-99.0); PO2(98.6) 92 mmHg (60-100); SAO2 96.8 % (95.0-100.0); THB 16.6 g/dL (11.5-17.4)
[2019-07-17 12:38] LABS: MODALITY VENTILATOR; PCO2(98.6) 81 mmHg (35-45)
[2019-07-17] MEDS ORDERED: NS 1,000 ML IV ONE (12:46)
[2019-07-17] MEDS: PEPCID IV SCH ×2 (12:58→18:42)
[2019-07-17] MEDS: SODIUM CHLORIDE 0.9% INJ SCH ×2 (12:58→18:42)
[2019-07-17] MEDS: NS 500 ML IV SCH (12:58)
[2019-07-17] MEDS: LOVENOX SUBQ SCH (13:01)
[2019-07-17 15:34] LABS: AGAP 10; BUN 10 mg/dL (8-22); CALCIUM 7.3 mg/dL (8.8-10.2); CHLORIDE 116 mmol/L (98-107); COSMO 325; CREATININE 0.9 mg/dL (0.7-1.2); ESTIMATED GFR > 60; POTASSIUM 3.6 mmol/L (3.5-5.1); SODIUM 148 mmol/L (136-145); TCO2 22 mmol/L (25-35)
[2019-07-17 15:42] LABS: GLUCOSE 683 mg/dL (70-104)
--- NOTE | 2019-07-17 18:09 | PROGRESS NOTE ---
DATE: 07/17/2019 SUBJECTIVE/PLAN: Mr. Cordero had a CT scan of the head this morning which showed diffuse cerebral edema with severe uncal herniation. There is a characteristic hypodensity of the basal ganglia and thalami compatible with infarction. The impression was that the findings highly correlated with complete brain . The patient also had a CT scan of the lungs which showed a tiny isolated PE in the left lower lobe. There was also extensive multilobar infiltrates compatible with pneumonia or aspiration. This afternoon at about 12:00, I was called by the nurse that the family members were there and wanted to talk with me. When I arrived, there was already a conversation ongoing with the mother, their grandmother, the sister, an uncle, and another female family member. Dr. Isaacs was there and Ms. Montoya the nurse was also there. Dr. Isaacs had already outlined the critical condition of Mr. Cordero at this point, and to his professional opinion, Mr. Cordero clinically looked brain , just the same findings I had earlier this morning. He also outlined the findings on the CT scan that I have just dictated above. The family members at that point were made aware that taking into consideration the clinical findings and the CT scans, it is very, very, very likely that Mr. Cordero is brain . Dr. Isaacs, however, told them that we are going to do the apnea test to confirm what was going on. Later on, we subsequently did the apnea test and at about 12:30, the ABG results confirmed that the pCO2 had gone up to 81 from 31 earlier on, which continues to reaffirm that Mr. Cordero was not taking any breath and that he was just retaining his CO2. I got a call from Dr. Isaacs again and he did inform me about the results of the ABG, and that from his professional opinion, he reaffirmed that Mr. Cordero was completely brain . I went back to Mr. Cordero and clinically he continues to remain the same. Pupils are hugely dilated. They are nonreactive. The patient is not triggering any respiratory effort at all and he does not react to any painful stimulation. He continues to show no signs of any vitality. I went back and spoke with the family members again. I did tell them about the results of the second ABG. I told them the retaining of the pCO2 is up to 81, and the fact that both Dr. Isaacs and myself believe in our professional opinion that Mr. Cordero is brain . The family had multiple questions. They wanted to know if autopsy could be done. They also wanted to know how long the patient can be on the ventilator. Also, the mother was undecided, and at one point said, she did not want to donate any organs, but then subsequently, the family said they would make a decision after consultation with other family members. So, I left the family members alone and requested that they inform us about their decision going forward. If they plan on any donation, then we can get the organ donation coordinator to make the necessary arrangements. The organ donation coordinator was also present with me when I was having the conversation with the family members. So, legally, I think we will pronounce Mr. Cordero brain at 12:30, when we had the apnea test. cc: Raghavendra Fairchild MD
--- NOTE | 2019-07-17 18:22 | PULMONOLOGY PROGRESS NOTE ---
DATE: 07/17/2019 SUBJECTIVE: The patient is unresponsive. OBJECTIVE: A Train of Four was checked. He responds to all 4 twitches indicating reversal of paralytic. Neurologic: Pupils are midpoint and do not react to light. Corneal stimulus is negative. The patient has no gag response. The patient's respiratory rate was decreased to 5 for approximately 20 minutes and then an apnea test was performed for approximately 5 minutes before arterial blood gas was obtained. Intake 1615, output 3800 mL. Oropharynx appears clear. Neck: Has tracheostomy in place. Chest: Reveals rhonchi bilaterally. Cardiac: S1-S2. Abdomen: Soft. Extremities: Slightly cool to the touch. LABORATORIES: CT scan of the brain reveals diffuse cerebral edema. No CSF spaces are visible. There is severe uncal herniation with density in the basal ganglia and thalami consistent with infarction. Cerebral arteries are constricted or occluded. Basilar artery system is the same as cerebral arteries. Impression per radiologist is this is consistent with complete brain . Sodium 156, potassium 4.6, chloride 121, bicarbonate 22, BUN 12, creatinine 0.9, glucose 185, phosphorus 1.2. White blood count 16.66, hemoglobin 15.5, platelet count 262,000. Arterial blood gas #1 this morning pH 7.49, pCO2 of 31, PO2 of 108 with a lactate of 2.4. Arterial blood gas following apnea test, pH 7.20, pCO2 of 81, PO2 of 92. IMPRESSION: 1. Cardiopulmonary arrest 2. Hypoxemic and hypercapnic respiratory failure 3. Uncal herniation with diffuse cerebral edema with severely constricted or occluded cerebral arteries. 4. Diabetes insipidus 5. Brain DISCUSSION: Unfortunate 19-year-old male status post cardiopulmonary arrest. His clinical exam, his radiographic findings, his laboratory data and diabetes insipidus support the diagnosis of brain . Dr. Fairchild and I both evaluated the patient at the bedside and reviewed the above findings and we both agree that the patient is brain . As the Attending physician, Dr. Fairchild will officially declare patient brain . PLAN: 1. Notify Organ Donation Center. 2. Discuss with family. The patient will not survive this hospital stay. 3. Official declaration of brain to be made by Dr. Fairchild. CRITICAL CARE TIME: 95 minutes cc: MD JOANA Lopes
--- NOTE | 2019-07-17 19:57 | Diag Imaging Result Doc PS360 ---
CHEST-PORTABLE - 07/17/2019 INDICATION: organ center's request COMPARISON: 9:51 AM FINDINGS: Stable tracheostomy tube and nasogastric tube. Stable small left pneumothorax. There has been decrease in the density of the extensive bilateral infiltrates/pneumonia. Heart size remains grossly normal. Stable right PICC line in good position. IMPRESSION: Slight decrease in the density of the extensive bilateral pneumonia. Stable small left pneumothorax. Electronically signed by Akbar Finnegan 07/17/2019 7:54 PM
--- NOTE | 2019-07-17 20:41 | Diag Imaging Result Doc PS360 ---
CT ABDOMEN/PELVIS W/O CONTRAST - 07/17/2019 INDICATION: Organ Center's request COMPARISON: Chest CT from earlier today FINDINGS: There is a nasogastric tube in the stomach. There is a Crooks catheter in the urinary bladder and a temperature probe in the rectum. No bowel obstruction or inflammation. No free air or free fluid. There is excreted contrast in the gallbladder which is normal. The liver, spleen, pancreas, adrenals, and kidneys are grossly normal. Bones are intact and well mineralized. IMPRESSION: No acute abnormality. This exam was performed using automated exposure control, adjustment of mA or kV according to patient size, and/or use of iterative reconstruction technique Electronically signed by Akbar Finnegan 07/17/2019 8:39 PM
[2019-07-17] MEDS ORDERED: D50W SYRINGE IV ONE (21:15)
[2019-07-17] MEDS ORDERED: HUMULIN R IV ONE (21:15)
[2019-07-17] MEDS ORDERED: SYNTHROID IV ONE (21:30)
[2019-07-17 21:45] LABS: ALLEN TEST YES; BE 1.6 mmoll (-3.0-3.0); BLOOD TYPE ARTERIAL; HCO3-(ACT) 26.1 mmoll (20.0-26.0); O2HB 94.3 % (95.0-99.0); PO2(98.6) 74 mmHg (60-100); SAMPLE BLOOD; SAO2 96.5 % (95.0-100.0); SRATE 6 BPM; THB 15.1 g/dL (11.5-17.4); TVOL 500 mL; pH(98.6) 7.23 (7.35-7.45)
[2019-07-17 21:47] LABS: MODALITY VENTILATOR; PCO2(98.6) 76 mmHg (35-45)
[2019-07-17] MEDS: ALBUMIN 25% IV ONE ×2 (21:50→21:51)
[2019-07-17 21:55] LABS: HEMATOCRIT 46.2 % (42.0-52.0); MCH 29.1 PG (27-31); MCHC 32.5 g/dL (33-37); MCV 89.5 FL (81-99); MPV 10.5 FL (7.4-10.4); RBC 5.16 XMIL (4.7-6.1); RDW 13.7 % (11.5-14.5); WBC 12.84 X1000 (4.8-10.8)
[2019-07-17] MEDS: D5 1/2 NS 1,000 ML IV SCH (21:56)
[2019-07-17] MEDS: SYNTHROID 200 MICROGM in NS 500 ML IV SCH (21:56)
[2019-07-17] MEDS ORDERED: NS IV ONE (22:00)
[2019-07-17] MEDS ORDERED: PITRESSIN 40 UNIT in NS 100 ML IV SCH (22:00)
[2019-07-17] MEDS ORDERED: SOLU MEDROL IV ONE (22:00)
[2019-07-17] MEDS ORDERED: SOLU-MEDROL ONE (22:07)
[2019-07-17 22:11] LABS: INR 1.24; PROTIME 15.8 Seconds (11.0-16.0)
[2019-07-17 22:12] LABS: PTT 31.8 Seconds (22.3-41.8)
[2019-07-17 22:50] LABS: AGAP 12; ALB/GLOB RATIO 1.2; ALBUMIN 3.3 g/dL (3.5-5.0); ALKALINE PHOSPHATASE 68 U/L (32-122); BUN 10 mg/dL (8-22); CALCIUM 8.8 mg/dL (8.8-10.2); CHLORIDE 133 mmol/L (98-107); COSMO 338; CREATININE 0.9 mg/dL (0.7-1.2); ESTIMATED GFR > 60; GGT 20 U/L (11-50); GLUCOSE 105 mg/dL (70-104); GOT 21 U/L (10-34); GPT 24 U/L (10-44); LDH 339 U/L (135-225); MAGNESIUM 2.2 mg/dL (1.5-2.7); PHOSPHORUS 4.8 mg/dL (2.7-4.5); POTASSIUM 5.2 mmol/L (3.5-5.1); TCO2 27 mmol/L (25-35); TOTAL BILIRUBIN 0.29 mg/dL (0.20-1.00)
[2019-07-17 22:51] LABS: SODIUM 172 mmol/L (136-145)
[2019-07-17 23:36] LABS: ALLEN TEST YES; BE -2.4 mmoll (-3.0-3.0); BLOOD TYPE ARTERIAL; HCO3-(ACT) 23.1 mmoll (20.0-26.0); O2(CT) 18.9 mL/dL (15.0-23.0); O2HB 98.1 % (95.0-99.0); PO2(98.6) 330 mmHg (60-100); SAMPLE BLOOD; SAO2 100.2 % (95.0-100.0); SRATE 12 BPM; THB 13.1 g/dL (11.5-17.4); TVOL 500 mL; pH(98.6) 7.26 (7.35-7.45)
[2019-07-17 23:37] LABS: MODALITY VENTILATOR; PCO2(98.6) 57 mmHg (35-45)
[2019-07-18 00:29] LABS: BLOOD TYPE ARTERIAL; SAMPLE BLOOD
[2019-07-18 00:30] LABS: ALLEN TEST YES; HCO3-(ACT) 24.9 mmoll (20.0-26.0); METHB 1.3 % (0.0-1.5); MODALITY VENTILATOR; O2(CT) 18.6 mL/dL (15.0-23.0); O2HB 97.6 % (95.0-99.0); PCO2(98.6) 35 mmHg (35-45); PO2(98.6) 355 mmHg (60-100); SAO2 100.1 % (95.0-100.0); SRATE 22 BPM; THB 12.9 g/dL (11.5-17.4); TVOL 500 mL; pH(98.6) 7.44 (7.35-7.45)
[2019-07-18 00:52] LABS: BE -1.3 mmoll (-3.0-3.0); BLOOD TYPE ARTERIAL; HCO3-(ACT) 23.9 mmoll (20.0-26.0); METHB 1.1 % (0.0-1.5); O2(CT) 17.9 mL/dL (15.0-23.0); O2HB 97.6 % (95.0-99.0); PO2(98.6) 183 mmHg (60-100); SAMPLE BLOOD; THB 12.8 g/dL (11.5-17.4)
[2019-07-18 00:53] LABS: ALLEN TEST YES; pH(98.6) 7.17 (7.35-7.45)
[2019-07-18 00:54] LABS: MODALITY COOL AEROSOL; PCO2(98.6) 80 mmHg (35-45)
[2019-07-18] MEDS: ZOSYN 3.375 GM in NS 50 ML IV SCH ×3 (01:11→12:10)
[2019-07-18] MEDS: LEVOPHED 8 MG in D5 1/2 NS 250 ML IV SCH (02:36)
[2019-07-18 02:53] LABS: AGAP 12; BUN 11 mg/dL (8-22); CALCIUM 9.7 mg/dL (8.8-10.2); CHLORIDE 134 mmol/L (98-107); COSMO 332; CREATININE 1.2 mg/dL (0.7-1.2); ESTIMATED GFR > 60; GLUCOSE 153 mg/dL (70-104); POTASSIUM 2.6 mmol/L (3.5-5.1); TCO2 21 mmol/L (25-35)
[2019-07-18 02:54] LABS: SODIUM 167 mmol/L (136-145)
[2019-07-18 04:15] LABS: ALLEN TEST YES; BE -0.4 mmoll (-3.0-3.0); BLOOD TYPE ARTERIAL; HCO3-(ACT) 24.6 mmoll (20.0-26.0); METHB 1.2 % (0.0-1.5); O2(CT) 17.2 mL/dL (15.0-23.0); O2HB 97.5 % (95.0-99.0); PCO2(98.6) 27 mmHg (35-45); PO2(98.6) 169 mmHg (60-100); SAMPLE BLOOD; SAO2 99.8 % (95.0-100.0); SRATE 22 BPM; THB 12.3 g/dL (11.5-17.4); TVOL 500 mL; pH(98.6) 7.51 (7.35-7.45)
[2019-07-18 04:17] LABS: MODALITY VENTILATOR
[2019-07-18] MEDS: POTASSIUM CHLORIDE 20 MEQ/SWI 20 MEQ/100 ML IVPB IV SCH ×2 (04:44→06:27)
[2019-07-18] MEDS: D5 1/2 NS 1,000 ML IV SCH (06:01)
[2019-07-18] MEDS: SYNTHROID 200 MICROGM in NS 500 ML IV SCH (06:05)
--- NOTE | 2019-07-18 07:30 | Diag Imaging Result Doc PS360 ---
CHEST-PORTABLE - 07/18/2019 INDICATION: Post code COMPARISON: Chest x-rays from yesterday FINDINGS: There is no change from prior. IMPRESSION: No change from prior. Electronically signed by Akbar Finnegan 07/18/2019 7:28 AM
[2019-07-18] MEDS: SODIUM CHLORIDE 0.9% INJ SCH (07:38)
--- NOTE | 2019-07-18 09:20 | PROGRESS NOTE ---
DATE: 07/18/2019 SUBJECTIVE: This morning, I saw Mr. Cordero in the ICU. He continues to be attached to the ventilator. No family member was at the bedside. Mr. Cordero continues to be unresponsive. On physical exams, his pupils continue to be blown, about 5 mm dilated, and they are nonreactive. He has no cough reflex. He does not have any spontaneous breathing. There is no corneal reflex. There is no gag and there is not any eye movement. There is air entry bilaterally to the lungs from the ventilator. Currently, Mr. Cordero is not on any sedation. OBJECTIVE: Vital Signs at 08:00: Blood pressure is 114/72, pulse of 92, respirations are 15, temperature 98.1 degrees, saturation is 100% on mechanical ventilation. Manager Work ventilation settings: FiO2 50%, Peep 5, RR 15, TV 500cc Laboratory Data: This morning has been reviewed. The patient's ABGs prior to apnea test, pH was 7.45, pCO2 of 35, PaO2 of 355. ABG post apnea test was pH of 7.17, pCO2 was 80, PaO2 was 183. Diagnostic Studies: A CT scan of the head which was done yesterday revealed diffuse cerebral edema. Impression was finding highly correlated with complete brain . ASSESSMENT AND PLAN: At this point, we continue to believe and I do certify that Mr. Cordero meets all requirements for clinical brain and that he is clinically brain . Patient's family members have been notified. cc: Raghavendra Fairchild MD [facility]
[2019-07-18 09:45] LABS: HEMATOCRIT 34.9 % (42.0-52.0); HEMOGLOBIN 11.3 g/dL (14.0-18.0); LYMPH# 0.68 X1000 (1.2-3.4); LYMPH% 6.9 % (20.5-51.1); MCH 28.9 PG (27-31); MCHC 32.4 g/dL (33-37); MCV 89.3 FL (81-99); MPV 10.8 FL (7.4-10.4); NEUT% 91.1 % (42.2-75.2); PLT 173 X1000 (130-400); RBC 3.91 XMIL (4.7-6.1); RDW 13.2 % (11.5-14.5); WBC 9.88 X1000 (4.8-10.8)
[2019-07-18 09:48] LABS: BLOOD TYPE ARTERIAL; SAMPLE BLOOD
[2019-07-18 09:49] LABS: ALLEN TEST NO; BE 1.3 mmoll (-3.0-3.0); HCO3-(ACT) 25.9 mmoll (20.0-26.0); METHB 1.3 % (0.0-1.5); O2(CT) 15.8 mL/dL (15.0-23.0); O2HB 97.1 % (95.0-99.0); PCO2(98.6) 35 mmHg (35-45); PO2(98.6) 121 mmHg (60-100); SAO2 99.2 % (95.0-100.0); SRATE 15 BPM; THB 11.4 g/dL (11.5-17.4); TVOL 500 mL; pH(98.6) 7.46 (7.35-7.45)
[2019-07-18 09:50] LABS: INR 1.37; PROTIME 17.2 Seconds (11.0-16.0)
[2019-07-18 09:50] LABS: MODALITY VENTILATOR
[2019-07-18 09:51] LABS: PTT 32.1 Seconds (22.3-41.8)
[2019-07-18 10:08] LABS: AGAP 10; ALB/GLOB RATIO 2.1; ALBUMIN 3.3 g/dL (3.5-5.0); BUN 11 mg/dL (8-22); CALCIUM 8.9 mg/dL (8.8-10.2); CHLORIDE 131 mmol/L (98-107); COSMO 330; CREATININE 1.1 mg/dL (0.7-1.2); DIRECT BILIRUBIN 0.1 mg/dL (0.00-0.20); ESTIMATED GFR > 60; GLUCOSE 245 mg/dL (70-104); POTASSIUM 3.1 mmol/L (3.5-5.1); TCO2 22 mmol/L (25-35); TOTAL BILIRUBIN 0.57 mg/dL (0.20-1.00); TOTAL PROTEIN 4.9 g/dL (6.3-8.3)
[2019-07-18 10:12] LABS: SODIUM 165 mmol/L (136-145)
[2019-07-18] MEDS ORDERED: D5 1/4 NS 1,000 ML IV SCH (10:30)
[2019-07-18 14:15] VITALS: BP 129/89
--- NOTE | 2019-07-18 21:38 | DISCHARGE SUMMARY ---
ADMISSION DATE: 07/15/2019 DISCHARGE DATE: 07/18/2019 DATE OF : 07/17/2019 DISPOSITION: Was to [facility]. ADMISSION DIAGNOSES: 1. Cardiopulmonary arrest. 2. Acute kidney injury. 3. Hyperglycemia. DIAGNOSIS AT THE TIME OF : 1. Status post cardiac arrest. 2. Acute respiratory failure after cardiac arrest with difficult intubation. 3. Unresponsiveness after cardiac arrest. 4. Elevated troponin, presumably demand ischemia. 5. 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 3. Electrolytes abnormality suggestive of diabetic insipidus. 4. Alleged spice use. 5. Brain . 6. History of asthma. 7. 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 8. Aspiration pneumonia. CONSULTATIONS: Anesthesia was consulted. Surgery was consulted. Patient was seen by Dr. Gomez. ENT was consulted. Patient was seen by Dr. Oliveira. Neurology was consulted. Patient was seen by Dr. Perry. Pulmonary medicine was consulted. Patient was seen by Dr. Robledo followed up by Dr. Isaacs. IMAGING STUDIES: 1. A KUB did show gastric distention. Echocardiogram showed ejection fraction of 15 to 20 percent with severe global hypokinesis. 2. Multiple chest x-rays were done. A CT scan of the head showed severe diffuse cerebral edema with severe uncal herniation. No abnormal contrast enhancement. Cerebral arteries are extremely constricted or completely occluded, findings highly correlated with complete brain . 3. CTA of the lungs showed solitary pulmonary emboli. 4. CT scan of the abdomen and pelvis showed no acute abnormality. Multiple chest x-rays were done. PRESENTING COMPLAINT: Cardiopulmonary arrest. HISTORY OF PRESENT COMPLAINT: Mr. Cordero, 19-year-old male who is known to have asthma, also known to be a premature deliver baby with upper airway disease in the past. The patient was said to have been in normal state, was at the uncle's house and became acutely ill, was seen kind of moving funny and went to the restroom and fell. When they went to check on him there was no pulse. The uncle tried to do a CPR. EMS was called. Patient was brought in. I understand EMS tried multiple times to intubate on the field were unsuccessful. Patient was transferred to the ER. At the emergency room CPR and multiple attempts were also done to intubate, were unsuccessful so LMA was placed. Patient was admitted to the ICU. During the hospital course anesthesia was called early on the following morning. They also tried multiple times to intubate, were unsuccessful so surgery put in an emergent tracheostomy. Mr. Cordero underwent the hypothermia protocol. He was seen by multiple subspecialties. At the end of the hypothermia protocol he was reevaluated, at that time he was not showing any sign of vitality, 8 hours later he remained the same. His pupils were completely blown, was not triggering the ventilator. He did not show any signs of vitality. CT scan of the head was done which confirmed that there was no blood flow and that the findings were highly suggestive of brain . Both Dr. Isaacs and myself had a lengthy conversation with the family members and we did lay out the findings on clinical and on the CT scan. An apnea test was done which did confirm that the patient was retaining. Prior to the apnea test his pCO2 was about 31, at the end of the apnea test his pCO2 had gone up to 81 which was confirmatory of the test. Organ donation merchandiser retail representative had also conversation with the family members. Finally I think the family members agreed to organ harvesting so arrangements were made for Mr. Cordero to be transferred to [facility] for that purpose. cc: Raghavendra Fairchild MD MTDD
== END 2019-07-18 13:55 | disposition expired | DRG 4 ==
LOC: SUPCPDRO → EDSEX → ED 03:24 → SUATTDRO 06:14 → ICU 06:14
PROVIDERS: ATTEND Internal Medicine